=== PATIENT | female | born 1970 | race Caucasian/White ===

== ENCOUNTER 2021-06-17 09:42 | Inpatient (IN) ==
[2021-06-17] MEDS ORDERED: morphine 4 MG/ML VIAL IV ONE (09:58)
[2021-06-17 10:25] LABS: POC Blood Urea Nitrogen 13 mg/dL (6-20); POC CO2 19 mmol/L (22-30); POC Calcium, Ionized 1.03 mmEq/L (1.16-1.32); POC Chloride 108 mEq/L (96-108); POC Creatinine 0.8 mg/dL (0.6-1.2); POC Glucose, Random 103 mg/dL (70-105); POC Hematocrit 33 % (36-48); POC Potassium 3.2 mEql/L (3.3-5.1); POC Sodium 138 mEq/L (133-145)
--- NOTE | 2021-06-17 11:04 | Emergency Department Note ---
Lower Extremity Injury HPI General Chief Complaint: Extremity Injury, Lower Stated Complaint: fever, left knee pain Time Seen by Provider: 06/17/21 09:58 Mode of arrival: ambulatory History of Present Illness HPI Narrative: Patient is a 50-year-old lady who arrives emergency department by private vehicle accompanied by her mother complaining of left knee pain. History is provided by the patient and review of her medical records. Patient underwent revision of a total knee arthroplasty by Dr. Sanders on May 24. She had initially been recovering well until Yvonne when she presented to the emergency department with worsening pain and swelling. I saw her at that time and discussed her presentation with Dr. Vargas who was on-call for the orthop edics group. We decided to initiate treatment with oral antibiotics and the patient has been taking the clindamycin she was prescribed. Despite this, her symptoms have been worsening. She continues to have pain and worsening edema in her left knee. The pain is worsened whenever she moves her knee. She has been taking hydrocodone at home without any improvement in her symptoms. She has been having associated fever and chills. She denies any trauma to her knee. Related Data Home Medications Medication Instructions Recorded Confirmed acyclovir 800 mg tablet 400 mg PO PRN PRN 05/07/19 06/17/21 aripiprazole 15 mg tablet 15 mg PO DAILY 05/07/19 06/17/21 multivitamin 1 each PO DAILY 05/07/19 06/17/21 pramipexole 1.5 mg tablet,extended 1.5 mg PO BID 05/07/19 06/17/21 release 24 hr amlodipine 5 mg tablet 10 mg PO HS 06/23/19 06/17/21 pregabalin 100 mg capsule (Lyrica) 50 mg PO TID cap 03/05/21 06/17/21 levothyroxine 200 mcg tablet 288 mcg PO QDAY 05/17/21 06/17/21 albuterol 90 mcg/actuation aerosol 90 mcg INHALATION PRN PRN 06/17/21 06/17/21 inhaler atorvastatin 40 mg tablet 40 mg PO QHS 06/17/21 06/17/21 clobetasol 0.05 % topical ointment 0.05 ea TOPICAL PRN PRN 06/17/21 06/17/21 epinephrine 0.3 mg/0.3 mL 0.3 mg IM PRN PRN 06/17/21 06/17/21 injection, auto-injector escitalopram oxalate 10 mg tablet 10 mg PO QDAY 06/17/21 06/17/21 etodolac 400 mg tablet 400 mg PO BID 06/17/21 06/17/21 famotidine 40 mg tablet 40 mg PO QDAY 06/17/21 06/17/21 hydrocodone 10 mg-acetaminophen 1 tab PO TID PRN 06/17/21 06/17/21 325 mg tablet leflunomide 20 mg tablet 20 mg PO QDAY 06/17/21 06/17/21 meloxicam 7.5 mg tablet 7.5 mg PO BID 06/17/21 06/17/21 Previous Rx's Medication Instructions Recorded aspirin 81 mg tablet,delayed 81 mg PO BID #60 tab 05/24/21 release (Ecotrin Low Strength) Allergies Allergy/AdvReac Type Severity Reaction Status Date / Time Bee Pollen Allergy Severe Anaphylaxis Verified 06/17/21 09:48 carisoprodol Allergy Severe Difficulty Verified 06/17/21 09:48 Breathing Amoxicillin [From Augmentin] Allergy Mild Rash Verified 06/17/21 09:48 clavulanic acid Allergy Mild Rash Verified 06/17/21 09:48 [From Augmentin] sucralfate [From Carafate] Allergy Mild Rash Verified 06/17/21 09:48 Sulfa (Sulfonamide Allergy Mild Rash Verified 06/17/21 09:48 Antibiotics) Iodinated Contrast Media AdvReac Intermediate Anxiety Verified 06/17/21 09:48 vancomycin AdvReac Intermediate Rash Verified 06/17/21 09:48 aspirin AdvReac Mild Nose Bleed Verified 06/17/21 09:48 lisinopril AdvReac Mild Rash Verified 06/17/21 09:48 morphine AdvReac Mild Irritable Verified 06/17/21 09:48 Cooked Peppers AdvReac Mild Gastrointestinal Uncoded 05/17/21 08:36 Upset Review of Systems ROS ROS Narrative: Narrative: All systems ED: reviewed and negative except as stated. Respiratory: Denies shortness of breath or cough Gastrointestinal: Denies abdominal pain PFSH Narrative Patient History Narrative: Narrative: Medical/Surgical/Family History All Active Problems Post-op bleeding (Acute) Encounter for post surgical wound check (Acute) Postoperative cellulitis of surgical wound (Acute) Left acute otitis media (Acute) Acid reflux (Chronic) COPD (chronic obstructive pulmonary disease) (Chronic) Crohn's disease (Chronic) Depressive disorder (Chronic) Hypertension, essential (Chronic) Hypothyroidism (acquired) (Chronic) Insomnia (Chronic) Tobacco abuse (Chronic) Osteoarthritis (Chronic) Obstructive sleep apnea syndrome (Chronic) Fibromyalgia (Chronic) Tear of meniscus of right knee (Chronic) Encounter for long-term (current) use of other high-risk medications (Acute) Chondrocalcinosis (Acute) Osteoarthritis of spine (Chronic) Back pain (Chronic) Encounter for long-term (current) use of high-risk medication (Acute) Plantar fasciitis (Chronic) Osteoarthritis of left knee (Chronic) Sciatica (Chronic) Lumbar radiculopathy (Chronic) Abdominal wall hernia (Chronic) Rheumatoid arthritis (Acute) Anxiety (Chronic) Chest pain at rest (Acute) Shortness of breath (Acute) History of pulmonary embolus (PE) (Acute) ESR raised (Acute) CRP elevated (Acute) Back pain (Acute) Encounter for medication refill (Acute) Change of dressing (Acute) Occluded PICC line (Acute) PIC line (peripherally inserted central catheter) flush (Acute) Ankle sprain (Acute) Polyarthralgia (Chronic) Contact dermatitis (Acute) Allergic reaction (Acute) Oral candidiasis (Acute) Medical History Abdominal wall hernia Acid reflux 2011 Acute exacerbation of chronic obstructive airways disease Anxiety Back pain Chest pain Chondrocalcinosis COPD (chronic obstructive pulmonary disease) 2010 Crohn's disease 2010 CRP elevated Depressive disorder Encounter for long-term (current) use of high-risk medication Encounter for long-term (current) use of other high-risk medications Encounter for long-term current use of other high-risk medications ESR raised Fibromyalgia Headache Headache Hypertension, essential 2012 Hypothyroidism (acquired) 07/20/2014 Insomnia 2010 Lumbar radiculopathy Migraine 1987 Obstructive sleep apnea syndrome Osteoarthritis Osteoarthritis of left knee Osteoarthritis of spine Plantar fasciitis Polyarthralgia Pre-syncope Rheumatoid arthritis Sciatica Tear of meniscus of right knee Tobacco abuse Tobacco abuse - smoking Urinary tract infection Uterine malignant neoplasm 1996 Surgical History History of back surgery x 7 History of colonoscopy 2012 History of elbow surgery Both elbows History of esophagogastroduodenoscopy 09/27/2014 History of eye surgery Both eyes History of hand surgery Wrist surgery; both wrists History of hernia surgery x 4 History of knee surgery x 3 History of neck surgery for chronic severe migraines History of thymectomy Thymus gland surgery Hx of total knee arthroplasty Family History Mother Family history of arthritis Migraine Father Essential hypertension Son Migraine Sister Carcinoma in situ of skin Social History Smoking Status: Current every day smoker Alcohol Intake Frequency: holiday/special occasion only Substance Use: does not use Exam Narrative Narrative: I reviewed the vital signs. Gen -patient is awake and alert and in no acute distress. HEENT -head is atraumatic. There is no conjunctival pallor or scleral icterus. CV -S1-S2 regular rate and rhythm. Resp -breathing is nonlabored. Lungs are clear to auscultation bilaterally. There is no cyanosis. Derm -skin is warm and dry. MSK -there is significant edema and induration surrounding the entire left knee. There is a palpable area of fluctuance anterior to the left patella as well as a palpable effusion. The patient's knee is held in mid flexion and she has extremely limited range of motion due to pain. There is overlying erythema that blanches with light palpation. Posterior tibial pulse is palpable. Patient has limited active range of motion at the ankle but good passive range of motion. Palpable compartments of the leg are soft. Psych -patient has appropriate affect. Neuro -patient answers questions appropriately with fluent speech. Patient moves all present extremities equally. Course Vital Signs Vital signs: Vital Signs Temperature 98.0 F 06/17/21 09:44 Pulse Rate 99 H 06/17/21 09:44 Respiratory Rate 16 06/17/21 09:44 Blood Pressure 127/88 06/17/21 09:44 Pulse Oximetry (%) 97 06/17/21 09:44 Temperature 98.0 F 06/17/21 09:44 Pulse Rate 95 H 06/17/21 16:31 Respiratory Rate 16 06/17/21 09:44 Blood Pressure 130/91 06/17/21 16:31 Pulse Oximetry (%) 99 06/17/21 16:31 Procedures Other Procedure: Arthrocentesis of left knee I discussed the risks and potential benefits of the procedure with the patient prior to the procedure. The patient's left knee was cleansed with Betadine and draped in a sterile fashion. Anesthesia was provided with local infiltration of 2% lidocaine with epinephrine. An 18-gauge needle was introduced into the joint space from a superior lateral approach. 20 mL of purulent yellow fluid was aspirated from the joint. Due to perceived additional fluid in the joint, a second 18-gauge needle was then introduced in the joint space and a small amount of purulent fluid was once again aspirated. A pressure dressing was applied following procedure. No complications were observed. MDM MDM Narrative Medical decision making narrative: Patient returns with worsening pain and swelling in her left knee. I discussed the patient's history examination diagnostic findings with Dr. Vargas on-call for orthopedics. As the patient is a personal patient of Dr. Sanders's he requested I discussed it with Dr. Sanders. I also discussed the patient's history examination diagnostic findings with Dr. Sanders. He requested I perform an arthrocentesis and discussed the results with him. After performing the arthrocentesis, I described the appearance of the fluid to Dr. Sanders and he requested the patient be admitted to his service. I discussed the plan with the patient and her mother and she is agreeable. Lab Data Lab results reviewed: Yes I reviewed the patient's lab results. Result diagrams: 06/17/21 10:05 Labs: Lab Results 06/17/21 06/17/21 06/17/21 Range/Units 10:05 10:05 10:30 WBC 8.8 (4.5-11.0) K/mcL RBC 3.85 (3.59-5.38) M/mcL Hgb 12.4 (11.2-15.7) g/dL Hct 37.2 (34.1-44.9) % POC Hct 33 L (36-48) % MCV 96.6 (80.0-100.0) fL MCH 32.2 (26.0-34.0) pg MCHC 33.3 (31.0-36.0) g/dL RDW 14.3 (11.5-14.5) % Plt Count 221 (140-440) K/mcL MPV 10.2 (7.4-10.4) fL Neut % (Auto) 80.2 H (38.0-78.0) % Lymph % (Auto) 9.7 L (15.5-49.0) % [place] % (Auto) 8.5 (1.0-12.0) % Eos % (Auto) 0.9 (0.0-7.0) % Baso % (Auto) 0.7 (0.0-2.0) % Lymph # (Auto) 0.86 L (1.50-4.80) K/mcL [place] # (Auto) 0.75 (0.10-0.90) K/mcL Eos # (Auto) 0.08 (0.00-0.70) K/mcL Baso # (Auto) 0.06 (0.00-0.30) K/mcL Absolute Neutrophils 7.09 (1.80-8.00) K/mcL ESR 94 H (0-20) mm/hr POC Sodium 138 (133-145) mEq/L POC Potassium 3.2 L (3.3-5.1) mEql/L POC Chloride 108 (96-108) mEq/L POC Total CO2 19 L (22-30) mmol/L POC BUN 13 (6-20) mg/dL POC Creatinine 0.8 (0.6-1.2) mg/dL POC Glucose 103 (70-105) mg/dL POC WB Ioniz Calcium 1.03 L (1.16-1.32) mmEq/L C-Reactive Protein 23.60 H (0.03-0.80) mg/dL Urine Color Urine Appearance (Clear) Urine pH (5.0-9.0) Ur Specific [place] (1.000-1.035) Urine Protein (Negative) mg/dL Urine Glucose (UA) (Negative) mg/dL Urine Ketones (Negative) mg/dL Urine Occult Blood (Negative) mg/dL Urine Nitrate (Negative) Urine Bilirubin (Negative) mg/dL Urine Urobilinogen mg/dL Ur Leukocyte Esterase (Negative) /uL Urine RBC (0-3) /hpf Urine WBC (0-4) /hpf Ur Squamous Epith Cells (0-4) /hpf Urine Bacteria (0) /hpf Urine Mucus (None) /hpf Ur Culture Indicated? Fluid Source Fluid Color Fluid Appearance Fluid RBC Fluid Diff Comment Fluid Tot Cell Count Fluid Nucleated Cells Fluid Neutrophils Fluid Lymphocytes Fluid Monocytes Fluid Eosinophils Fluid Basophils Fluid Plasma Cells Fld Mesothelial Cells Synovial Source Left knee Synovial Color Yellow Synovial Appearance Hazy Synovial Nuc Cells 20596 /cumm Synovial Neutrophils 89 H (0-25) % Synovial Other Cells 11 % 06/17/21 06/17/21 Range/Units 13:57 13:59 WBC (4.5-11.0) K/mcL RBC (3.59-5.38) M/mcL Hgb (11.2-15.7) g/dL Hct (34.1-44.9) % POC Hct (36-48) % MCV (80.0-100.0) fL MCH (26.0-34.0) pg MCHC (31.0-36.0) g/dL RDW (11.5-14.5) % Plt Count (140-440) K/mcL MPV (7.4-10.4) fL Neut % (Auto) (38.0-78.0) % Lymph % (Auto) (15.5-49.0) % [place] % (Auto) (1.0-12.0) % Eos % (Auto) (0.0-7.0) % Baso % (Auto) (0.0-2.0) % Lymph # (Auto) (1.50-4.80) K/mcL [place] # (Auto) (0.10-0.90) K/mcL Eos # (Auto) (0.00-0.70) K/mcL Baso # (Auto) (0.00-0.30) K/mcL Absolute Neutrophils (1.80-8.00) K/mcL ESR (0-20) mm/hr POC Sodium (133-145) mEq/L POC Potassium (3.3-5.1) mEql/L POC Chloride (96-108) mEq/L POC Total CO2 (22-30) mmol/L POC BUN (6-20) mg/dL POC Creatinine (0.6-1.2) mg/dL POC Glucose (70-105) mg/dL POC WB Ioniz Calcium (1.16-1.32) mmEq/L C-Reactive Protein (0.03-0.80) mg/dL Urine Color Yellow Urine Appearance Hazy A (Clear) Urine pH 5.0 (5.0-9.0) Ur Specific [place] 1.030 (1.000-1.035) Urine Protein 30 A (Negative) mg/dL Urine Glucose (UA) Negative (Negative) mg/dL Urine Ketones Negative (Negative) mg/dL Urine Occult Blood Negative (Negative) mg/dL Urine Nitrate Negative (Negative) Urine Bilirubin Negative (Negative) mg/dL Urine Urobilinogen Negative mg/dL Ur Leukocyte Esterase 500 A (Negative) /uL Urine RBC 9 H (0-3) /hpf Urine WBC 24 H (0-4) /hpf Ur Squamous Epith Cells 10 H (0-4) /hpf Urine Bacteria None (0) /hpf Urine Mucus Many A (None) /hpf Ur Culture Indicated? No Fluid Source TNP Fluid Color TNP Fluid Appearance TNP Fluid RBC TNP Fluid Diff Comment TNP Fluid Tot Cell Count TNP Fluid Nucleated Cells TNP Fluid Neutrophils TNP Fluid Lymphocytes TNP Fluid Monocytes TNP Fluid Eosinophils TNP Fluid Basophils TNP Fluid Plasma Cells TNP Fld Mesothelial Cells TNP Synovial Source Synovial Color Synovial Appearance Synovial Nuc Cells /cumm Synovial Neutrophils (0-25) % Synovial Other Cells % ED POC Tests ED POC Tests: NAIMA - SARS Antigen Negative Discharge Plan Patient/Caregiver Discharge Instructions Pt seen by SERVICE ORDER CLERK/PA only: No Patient Disposition: Xfer As Inpt ([facility]) Condition: Fair Follow up with: Anastacia Lindsay FNP [Primary Care Provider] - Prescriptions: No Action pregabalin [Lyrica] 100 mg capsule 50 mg PO TID 0RF multivitamin 1 EACH tablet 1 each PO DAILY 0RF acyclovir 800 MG tablet 400 mg PO PRN PRN (Reason: Cold Sores) 0RF aripiprazole 15 MG tablet 15 mg PO DAILY 0RF pramipexole 1.5 MG tablet extended release 24 hr 1.5 mg PO BID 0RF amlodipine 5 MG tablet 10 mg PO HS 0RF levothyroxine 200 mcg Tablet 288 mcg PO QDAY 0RF Rx Instructions: In addition to Levothyroxine 150mcg aspirin [Ecotrin Low Strength] 81 mg tablet,delayed release (DR/EC) 81 mg PO BID Qty: 60 0RF atorvastatin 40 mg tablet 40 mg PO QHS 0RF Label Comments: TAKE 1 TABLET BY MOUTH AT BEDTIME famotidine 40 mg tablet 40 mg PO QDAY 0RF hydrocodone-acetaminophen 10-325 mg tablet 1 tab PO TID PRN (Reason: Pain) 0RF Label Comments: TAKE 1 - 2 TABLETS BY MOUTH EVERY 4 - 6 HOURS leflunomide 20 mg Tablet 20 mg PO QDAY 0RF meloxicam 7.5 mg Tablet 7.5 mg PO BID 0RF etodolac 400 mg Tablet 400 mg PO BID 0RF albuterol 90 mcg/actuation Aerosol 90 mcg INHALATION PRN PRN (Reason: Shortness Of Breath) 0RF clobetasol 0.05 % ointment 0.05 ea TOPICAL PRN PRN (Reason: Rash) 0RF Label Comments: APPLY EXTERNALLY TO THE AFFECTED AREA ON BODY TWICE DAILY FOR ALMOST 2 WEEKS ON/OFF. AVOID FACE. epinephrine 0.3 mg/0.3 mL auto-injector 0.3 mg IM PRN PRN (Reason: Anaphylaxis) 0RF Label Comments: INJECT EPIPEN NEEDED FOR EXPOSURE TO BEE VENOM escitalopram oxalate 10 mg tablet 10 mg PO QDAY 0RF Label Comments: TAKE 1 TABLET BY MOUTH EVERY DAY Discharge Date/Time: 06/17/21 17:00
[2021-06-17 11:06] LABS: Basophils # (Auto) 0.06 K/mcL (0.00-0.30); Basophils % (Auto) 0.7 % (0.0-2.0); Eosinophils # (Auto) 0.08 K/mcL (0.00-0.70); Eosinophils % (Auto) 0.9 % (0.0-7.0); Hematocrit 37.2 % (34.1-44.9); Hemoglobin 12.4 g/dL (11.2-15.7); Lymphocytes # (Auto) 0.86 K/mcL (1.50-4.80); Lymphocytes % (Auto) 9.7 % (15.5-49.0); Mean Cell Volume 96.6 fL (80.0-100.0); Mean Corpuscular HGB Conc 33.3 g/dL (31.0-36.0); Mean Platelet Volume 10.2 fL (7.4-10.4); Monocytes # (Auto) 0.75 K/mcL (0.10-0.90); Monocytes % (Auto) 8.5 % (1.0-12.0); Neutrophils % (Auto) 80.2 % (38.0-78.0); Platelet Count 221 K/mcL (140-440); RBC 3.85 M/mcL (3.59-5.38); Red Cell Distribution Width 14.3 % (11.5-14.5); WBC 8.8 K/mcL (4.5-11.0)
[2021-06-17 12:14] LABS: Erythrocyte Sedimentation Rate 94 mm/hr (0-20)
[2021-06-17] MEDS: HYDROmorphone 0.5 MG/0.5 ML SYRINGE IV PRN ×3 (12:25→18:53)
[2021-06-17 14:31] LABS: Appearance,Urine HAZY (Clear); Bilirubin,Urine Negative (Negative); Color,Urine Yellow; Culture Indicated,Urine No; Glucose,Urine (UA) Negative (Negative); Ketones,Urine Negative (Negative); Leukocyte Esterase,Urine 500 /uL (Negative); Mucus,Urine MANY /hpf; Nitrate,Urine Negative (Negative); Protein,Urine 30 mg/dL (Negative); Urine Blood Negative (Negative); Urine RBC 9 /hpf (0-3); Urine Squamous Epithelial Cell 10 /hpf (0-4); Urine WBC 24 /hpf (0-4); Urobilinogen,Urine Negative
[2021-06-17] MEDS ORDERED: ACETAMINOPHEN 325 MG TABLET PO PRN (15:46)
[2021-06-17] MEDS ORDERED: ONDANSETRON 4 MG/2 ML VIAL IV PRN (15:46)
[2021-06-17] MEDS: 0.9 % SODIUM CHLORIDE 1,000 ML IV SCH (16:19)
[2021-06-17 16:24] LABS: Appearance,Synovial Fluid Hazy; Color,Synovial Fluid Yellow; Neutrophils,Synovial Fluid 89 % (0-25); Nucleated Cells,Synovial Fld 45543 /cumm; Other Cells,Synovial Fluid 11 %
--- OUTSIDE RECORDS SUMMARY | 2021-06-17 17:26 | External Medical Summary ---
:1970 Author Care Team Providers Name Role Phone AVIS LERMA MD Primary Care Provider [phone] HALLE BRICEÑO MD Operational Risk Manager [phone] [facility] OTHER [phone] Allergies Code Code System Name Reaction Severity Status Onset 1191 RxNorm Aspirin Active 499696 RxNorm Augmentin Active Bee Venom Protein (Honey Bee) Active 210 RxNorm Carisoprodol Active Clavulanic Acid Active Green Pepper Active Iodinated Contrast Media Activ e 33917 RxNorm Lisinopril Active 7052 RxNorm Morphine Active 752478 RxNorm Soma Active 68975 RxNorm Sucralfate Active Sulfa (Sulfonamide Active Antibiotics) 00125 RxNorm Vancomycin Active Medications Name Status Start Date Stop Date acetazolamide ER 500 mg capsule,extended release Completed 12/24/2018 1 po QD acyclovir 400 mg tablet Completed 07/16/19 18 amitriptyline 50 mg tablet Completed 12/24 amlodipine 5 mg tablet Active Not avail able Take 1 tablet every day by oral route in the evening. Anoro Ellipta 62.5 mcg-25 mcg/actuation powder Completed 12/24/2018 for inhalation aripiprazole 15 mg tablet Active Not av ailable Atrovent HFA 17 mcg/actuation aerosol inhaler Completed 07/16/2017 azithromycin 250 mg tablet Completed 07/16 bisoprolol fumarate 10 mg tablet Completed 12/24/2018 bisoprolol fumarate 5 mg tablet Completed 12/24/2018 1 po BID zuypojyxso-lezjelkycxawi-wfyexadd 50 mg-325 mg-40 mg tablet Comp leted 12/24/2018 take 1 -2 tabs po q 4 hours PRN carbamazepine 200 mg tablet Completed 12/14 Chantix Starting Month Aaron Completed 06/01 clindamycin HCl 300 mg capsule Completed 0 07/29/2017 cyclobenzaprine 10 mg tablet Completed 04/2019 doxycycline hyclate 100 mg tablet Completed 07/17/2017 Enbrel Completed 06/01/2020 1 injection once weekly epinephrine 0.3 mg/0.3 mL injection, Active Not available auto-injector estradiol 2 mg tablet Completed 06/01/2020 eszopiclone 2 mg tablet Completed 12/25/19 19 1/2 tab po q hs prn fluconazole Completed 07/24/2020 10mg daily fluconazole 150 mg tablet Completed 2018 fluticasone propionate 50 mcg/actuation nasal Completed 12/24/2018 spray,suspension furosemide 20 mg tablet Completed 06/01/20 20 Take 1 tablet every day by oral route. gabapentin 800 mg tablet Completed 020 hydrocodone 10 mg-acetaminophen 325 mg tablet Active Not available PRN hydrocodone 7.5 mg-acetaminophen 325 mg tablet Completed 07/16/2017 hydroxychloroquine 200 mg tablet Completed 12/24/2018 hydroxyzine HCl 10 mg tablet Completed ibuprofen 800 mg tablet Completed 12/25/19 19 Keflex 500 mg capsule Active 07/24/2020 Not availa ble Take 2 capsules 4 times a day by oral route. ketoconazole 2 % topical cream Completed 0 12/24/2018 leflunomide 10 mg tablet Active 07/24/2020 Not rena ilable Take 2 tablets every day by oral route for 30 days. leflunomide 20 mg tablet Completed 020 levofloxacin 500 mg tablet Completed 07/16 levofloxacin 750 mg tablet Completed 07/16 levothyroxine 100 mcg tablet Completed Take 1 tablet every day by oral route. levothyroxine 125 mcg tablet Completed 04/2019 methylprednisolone 4 mg tablets in a dose pack Completed 07/16/2017 montelukast 10 mg tablet Completed 019 mupirocin 2 % topical ointment Completed 0 07/29/2017 naproxen 500 mg tablet Completed 8 omeprazole 20 mg capsule,delayed release Completed 06/01/2020 TAKE 1 CAPSULE BY MOUTH EVERY MORNING BEFORE breakfast ondansetron 4 mg disintegrating tablet Completed 07/16/2017 ondansetron 8 mg disintegrating tablet Completed 07/16/2017 One A Day tablet Active Not available Take by oral route. potassium chloride ER 10 mEq tablet,extended release Active Not available Take 1 tablet every day by oral route. pramipexole 1 mg tablet Completed 07/16/19 18 pramipexole 1.5 mg tablet Completed 2019 Take 1 tablet every day by oral route in the evening for 90 day s. prednisone 20 mg tablet Completed 07/16/19 18 ProAir HFA 90 mcg/actuation aerosol inhaler Active Not available ranitidine 150 mg tablet Completed 018 red yeast rice Completed 06/01/2020 1200 MG, 1 tab BID rifampin 300 mg capsule Completed 07/24/19 21 Take 1 capsule 3 times a day by oral route for 49 days. ropinirole 3 mg tablet Completed 8 tamsulosin 0.4 mg capsule Completed 2017 tizanidine 4 mg tablet Completed 8 topiramate 100 mg tablet Completed 019 trazodone 100 mg tablet Completed 06/01/20 20 Take 2 tablets by oral route in the evening for 90 days. trazodone 50 mg tablet Completed 9 Trelegy Ellipta 100 mcg-62.5 mcg-25 mcg powder for inhalation Ac tive Not available INHALE 1 PUFF BY MOUTH EVERY DAY triamcinolone 0.1 % topical ointment and dimethicone 5 % topical cream Completed 06/01/2020 PRN venlafaxine ER 150 mg capsule,extended release Completed 06/01/2020 24 hr Problems Name Status Onset Date Source Strangulated Incisional Hernia Active 07/29/2017 Postoperative Visit Active 09/10/2017 Umbilical Hernia Active 10/21/2017 Central Hypothyroidism Active 12/24/2018 Hyperlipidemia Active 12/24/2018 Insomnia Active 12/24/2018 Obstructive Sleep Apnea Syndrome Active 12/24/2018 Restless Legs Active 12/24/2018 Chronic Pain Active 12/24/2018 Neuropathy Active 12/24/2018 Hypertensive Disorder Active 12/24/2018 Allergic Rhinitis Active 12/24/2018 Chronic Obstructive Lung Disease Active 12/24/2018 Gastroesophageal Reflux Disease Active 12/24/2018 Rheumatoid Arthritis Active 12/24/2018 Osteoarthritis Active 12/24/2018 Spinal Stenosis Active 12/24/2018 Headache Active 12/24/2018 Discitis Active 06/22/2020 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 Mass of Axilla Active Procedures Date Name Performed by 08/21/2017 Hernia Repair W/mesh Information not rena ilable Notes: Laparoscopic incisional 02/19/2006 Hernia Repair Information not avai lable 07/18/2005 Abdominoplasty Information not avai lable Wrist Arthroscopy/surgery Information no t available Total Knee Arthroplasty Information not available Notes: Right total knee replacement Shoulder Surgery Information not avai lable Knee Surgery Information not avai lable Hysterectomy Information not avai lable Removal of Thymus Gland Information not available Elbow Surgery Information not avai lable Back Surgery Information not avai lable Appendectomy Information not avai lable 10/21/2017 CT, Abdomen + Pelvis, W/ Contrast [facility] [address] [place] [id number] (Work Place) 10/11/2019 US, Breast, Limited [facility] [address] [place] [id number] (Work Place) 10/12/2019 MAMMO, Diagnostic, Digital, Unilateral [facility] [address] [place] [address] [place] [address] (Work Place) Results Lab Results Date Name Specimen Result Interpretation Description Value Range Status Address 07/22/2020 CBC W/ Auto Whole Wbc 5.5 4.5-11.0 Final Pathologists' Diff Blood K/mcL K/mcL Regional [facility] ab: [address] [place] [address] Whole Rbc 4.50 4.00-5.20 Final Patholo gists' Blood M/mcL M/mcL Regional L ab: [address] [place] [address] Whole Hgb 13.1 12.0-15.0 Final Patholo gists' Blood g/dL g/dL Regional L ab: [address] [place] [address] Whole Hct 42.2 % 36.0-48.0 Final Patholo gists' Blood % Regional L ab: [address] [place] [address] Whole Mcv 93.8 80.0-100. Final Patholo gists' Blood fL 0 fL Regional L ab: [address] [place] [address] Whole Mch 29.1 26.0-34.0 Final Patholo gists' Blood pg pg Regional L ab: [address] [facility] , [place] Whole Mchc 31.0 31.0-36.0 Final Patholo gists' Blood g/dL g/dL Regional L ab: [address] [place] [address] Whole High Rdw 15.1 % 11.5-14.5 Final Patholo gists' Blood % Regional L ab: [address] [facility] , [place] Whole Plt CT 272 140-440 Final Patholog ists' Blood K/mcL K/mcL Regional L ab: [address] [facility] , [place] Whole High Mpv 10.5 7.4-10.4 Final Patholog ists' Blood fL fL Regional L ab: [address] [facility] , [place] Whole Neut % 56.8 % 38.0-78.0 Final Pathol ogists' Blood % Regional L ab: [address] [facility] , [place] Whole Lymph % 32.5 % 15.0-49.0 Final Patho logists' Blood % Regional L ab: [address] [facility] , [place] Whole [place] % 6.0 % 1.0-12.0 Final Patholo gists' Blood % Regional L ab: [address] [facility] , [place] Whole Eos % 3.3 % 0.0-7.0 % Final Patholo gists' Blood Regional L ab: [address] [facility] , [place] Whole Baso % 1.4 % 0.0-2.0 % Final Pathol ogists' Blood Regional L ab: [address] [facility] , [place] Whole Absolute 3.14 1.80-8.00 Final Path ologists' Blood Neutrophil K/mcL K/mcL Region al Lab: Count [address] [facility] , [place] Whole Lymph # 1.80 1.50-4.80 Final Patho logists' Blood K/mcL K/mcL Regional L ab: [address] [facility] , [place] Whole [place] # 0.33 0.10-0.90 Final Pathol ogists' Blood K/mcL K/mcL Regional L ab: [address] [facility] , [place] Whole Eos # 0.18 0.00-0.70 Final Patholo gists' Blood K/mcL K/mcL Regional L ab: [address] [facility] , [place] Whole Baso # 0.08 0.00-0.20 Final Pathol ogists' Blood K/mcL K/mcL Regional L ab: [address] [facility] , [place] 07/22/2020 C-reactive Plasma C-reactiv 0.30 0.03-0.80 Fi nal Pathologists' Protein, e Protein mg/dL mg/dL Regio nal Lab: Quantitative [address] [facility], [place] 07/22/2020 CMP, Serum Plasma Glucose,r 74 70-105 Final Pathologists' or Plasma andom mg/dL mg/dL Regiona l Lab: [address] , [place] Plasma Blood 13 6-20 Final Pathologis ts' Urea mg/dL mg/dL Regional L ab: Nitrogen [address], [place] Plasma Creatinin 1.1 0.6-1.1 Final Patho logists' e mg/dL mg/dL Regional L ab: [address] , [place] Plasma Sodium 140 133-145 Final Patholog ists' mmol/L mmol/L Regional L ab: [address] , [place] Plasma Potassium 3.4 3.3-5.1 Final Patho logists' mmol/L mmol/L Regional L ab: [address] , [place] Plasma Chloride 100 96-108 Final Patholo gists' mmol/L mmol/L Regional L ab: [address] , [place] Plasma High Carbon 32 22-30 Final Pathologi sts' Dioxide mmol/L mmol/L Regional Lab: [address] , [place] Plasma Anion Gap 8.0 8.0-16.0 Final Path ologists' Regional L ab: [address] , [place] Plasma Calcium 9.4 8.6-10.4 Final Pathol ogists' mg/dL mg/dL Regional L ab: [address] , [place] Plasma Total 8.4 5.9-8.4 Final Pathologi sts' Protein gm/dL gm/dL Regional Lab: [address] , [place] Plasma Albumin 4.5 3.2-5.2 Final Patholo gists' gm/dL gm/dL Regional L ab: [address] , [place] Plasma High Globulin 3.9 2.2-3.7 Final Pathol ogists' gm/dL gm/dL Regional L ab: [address] , [place] Plasma Alb/glob 1.2 1.0-2.3 Final Pathol ogists' Ratio Regional L ab: [address] , [place] Plasma Bilirubin 0.2 0.1-1.0 Final Patho logists' ,total mg/dL mg/dL Regional L ab: [address] , [place] Plasma AST/SGOT 24 U/L <32 U/L Final Pathol ogists' Regional L ab: [address] , [place] Plasma ALT/SGPT 14 U/L <40 U/L Final Pathol ogists' Regional L ab: [address] , [place] Plasma Alkaline 94 U/L 39-117 Final Patholo gists' Phosphatas U/L Region al Lab: e [address] , [place] Plasma Glomerula 58 Final Pathol ogists' r Regional L ab: Filtration [address], Rate [place] 07/22/2020 ESR Whole High Erythrocy 39 0-20 Corrected Pathologists' (Erythrocyte Blood te Sed mm/HR mm/HR Luz onal Lab: Sedimentatio Rate [address] , n Rate), [place] Blood 06/13/2020 CMP, Serum No Pa thologists' or Plasma observatio Reg ional Lab: n [address] , recorded. [facility] n 06/07/2020 CMP, Serum No Pa thologists' or Plasma observatio Reg ional Lab: n [address] , recorded. [facility] n 07/17/2017 Mrsa Screen, GROIN Results Pathologists' PCR Regional L ab: [address] [facility] , [place] 07/17/2017 Mrsa Screen, NOSE Results Pathologists' PCR Regional L ab: [address] , [place] Past Encounters 09/21/2020 Discitis; Methicillin Resistant Staphylo coccus Aureus Carrier; Rheumatoid Arthritis; ESR Raised Hermelindo Jimenez MD: [address] [place] [address], [place] [phone], Ph. 07/24/2020 Discitis; Methicillin Resistant Staphylo coccus Aureus Carrier; Spinal Stenosis; Rheumatoid Arthritis Hermelindo Jimenez MD: [address] [place] [address], [place] [phone], Ph. 06/22/2020 Acute Osteomyelitis of Lumbar Spine; Dis citis; Infection by Methicillin Sensitive Staphylococcus Aureus; Rheumatoid Arthritis; Spinal Stenosis; Methicillin Resistant Staphylococcus Aureus Carrier Hermelindo Jimenez MD: [address] [place] [address], [place] [phone], Ph. 06/01/2020 Lumbar Discitis; Infection by Methicilli n Sensitive Staphylococcus Aureus; Methicillin Resistant Staphylococcus Aureus Carrier; Rheumatoid Arthritis; ESR Raised Hermelindo Jimenez MD: [address] [place] [address], [place] [phone], Ph. Social History Tobacco Smoking Status Heavy Tobacco Smoker (1 pack per day) Vaccine List Vaccine Type influenza, injectable, quadrivalent 04/02/2017 03/16/2020 Pneumococcal Conjugate, unspecified form ulation 03/16/2014 pneumococcal, unspecified formulation 06/16/2018 Notes: shingles shot 08/28/20 Plan of Care Reminders Provider Appointments None recorded. Lab None recorded. Referral None recorded. Procedures None recorded. Surgeries None recorded. Imaging None recorded. Vitals 09/21/2020 02:00PM Established Patient 30 Height Weight BMI Blood Pressure 5 ft 8 in 241 lbs 36.6 kg/m2 124/76 mm[Hg] 07/24/2020 01:00PM Established Patient 30 Height Weight BMI Blood Pressure 5 ft 8 in 255 lbs 38.8 kg/m2 128/72 mm[Hg] 06/22/2020 02:00PM Established Patient 30 Height Weight BMI Blood Pressure 5 ft 8 in 234 lbs 35.6 kg/m2 122/76 mm[Hg] 06/01/2020 02:30PM Hospital Follow Up Height Weight BMI Blood Pressure 5 ft 8 in 250 lbs 38 kg/m2 118/84 mm[Hg] 11/10/2019 09:45AM Post-Op Height Weight BMI Blood Pressure 5 ft 8 in 272 lbs 41.4 kg/m2 130/90 mm[Hg] 10/11/2019 02:30PM Procedure 45 Height Weight BMI Blood Pressure 5 ft 8 in 278.2 lbs 42.3 kg/m2 132/86 mm[Hg] 03/29/2019 09:30AM Established Patient 30 Height Weight BMI Blood Pressure 5 ft 8 in 290 lbs 44.1 kg/m2 132/80 mm[Hg] 12/24/2018 08:30AM New Patient 60 Height Weight BMI Blood Pressure 5 ft 8 in 300 lbs 45.6 kg/m2 162/100 mm[Hg] 10/21/2017 01:30PM Any 15 Height Weight BMI Blood Pressure 5 ft 8 in 281 lbs 42.7 kg/m2 135/65 mm[Hg] 09/10/2017 09:00AM Post-Op Height Weight BMI 5 ft 8 in 268 lbs 40.7 kg/m2 07/29/2017 10:30AM Any 15 Height Weight BMI Blood Pressure 5 ft 8 in 280 lbs 42.6 kg/m2 137/69 mm[Hg] 07/17/2017 02:30PM Established Patient 15 Height Weight BMI Blood Pressure 5 ft 8 in 275 lbs 41.8 kg/m2 120/70 mm[Hg]
--- OUTSIDE RECORDS SUMMARY | 2021-06-17 17:26 | External Medical Summary | Continuity of Care Document ---
:1970 Author Organization [facility] Address [address] [place] [address] [facility] [place] [address] Phone Care Team Providers Name Role Phone Savannah OD Unavailable Unavailable Allergies, Adverse Reactions, Alerts Substance Reaction Status Criticality sucrose Active No Information carisoprodol Active No Information green pepper Active No Information POTASSIUM CLAVULANATE Active No Informa tion AMOXICILLIN TRIHYDRATE Active No Inform ation lisinopril Active No Information morphine Active No Information vancomycin Active No Information Sulfa (Sulfonamide Antibiotics) Active No Information aspirin Active No Information WARNIN allergy(ies) could not be collected because the type is not supported. Please contact [facility] practice for further details. Medications Medication Instructions Dosage Effective Status Comments Dates (start - stop) ofloxacin 0.3 % eye (1st eye) Instill - Active Allow a new drops one drop to left prescrip tion for eye four times a the same day, for one medication(s ) for week. Begin using a surgi solomon drops as procedure on t he instructed. second eye if within 30 days of the first eye. May substitute Tobramycin 5mL if ofloxacin is unavailable prednisolone acetate (1st eye) Instill - Activ e Allow a new 1 % eye one drop to left prescrip tion for drops,suspension eye four times a th e same day, until gone. medicati on(s) for Begin using drops a surgi solomon as instructed. procedure on the second eye if within 30 days of the first eye. Ok to substitute dexamethasone 0.1% or Durezol 0.0 5%, QID until out. ofloxacin 0.3 % eye (2nd eye) Instill - Active Allow a new drops one drop to right prescri ption for eye four times a the same day, for one medication(s ) for week. Begin using a surgi solomon drops as procedure on t he instructed. second eye if within 30 days of the first eye. May substitute Tobramycin 5mL if ofloxacin is unavailable prednisolone acetate (2nd eye) Instill - Activ e Allow a new 1 % eye one drop to right prescri ption for drops,suspension eye four times a th e same day, until gone. medicati on(s) for Begin using drops a surgi solomon as instructed. procedure on the second eye if within 30 days of the first eye. Ok to substitute dexamethasone 0.1% or Durezol 0.0 5%, QID until out. aripiprazole 15 mg take 1 tablet by 15 MG - Active tablet oral route every day albuterol sulfate HFA - Active 90 mcg/actuation aerosol inhaler amlodipine 5 mg TAKE 1 TABLET BY - Active tablet MOUTH EVERY DAY AT BEDTIME aspirin 81 mg TAKE 1 TABLET BY - Active tablet,delayed MOUTH EVERY release MORNING atorvastatin 40 mg take 1 tablet by 40 MG - Active tablet oral route every day clobetasol 0.05 % - Active topical ointment cyclobenzaprine 10 mg - Active tablet epinephrine 0.3 INJECT EPIPEN - Active mg/0.3 mL injection, NEEDED FOR auto-injector EXPOSURE TO BEE VENOM escitalopram 10 mg - Active tablet famotidine 40 mg - Active tablet fluconazole 150 mg TAKE 1 TABLET BY - Active tablet MOUTH TODAY. REPEAT IN 3 DAYS IF NOT RESOLVED hydrocodone 10 - Active mg-acetaminophen 325 mg tablet leflunomide 20 mg TAKE 1 TABLET BY - Active tablet MOUTH EVERY DAY levothyroxine 150 mcg take 1 tablet by 150 MCG - Active tablet oral route every day levothyroxine 200 mcg TAKE 1 TABLET BY - Active tablet MOUTH EVERY DAY loratadine 10 mg TAKE 1 TABLET BY - Active tablet MOUTH EVERY DAY meloxicam 7.5 mg TAKE 1 TABLET BY - Active tablet MOUTH TWICE DAILY Narcan 4 mg/actuation USE DIRECTED - Active nasal spray NASALLY omeprazole 20 mg TAKE 2 CAPSULES - Active capsule,delayed BY MOUTH TWICE release DAILY pramipexole 1.5 mg TAKE 1 TABLET BY - Active tablet MOUTH DAILY pregabalin 50 mg - Active capsule sumatriptan 50 mg take 1 tablet by 50 MG - Active tablet oral route after onset of migraine; may repeat after 2 hours if headache returns,not to exceed 200mg in 24hrs Symbicort 80 mcg-4.5 - Active mcg/actuation HFA aerosol inhaler topiramate 100 mg TAKE 1 TABLET BY - Active tablet MOUTH TWICE DAILY Procedures Procedure Date POSTOP FOLLOW UP VISIT DURING GLOBAL ANESTH, LENS SURGERY FACILITY FEE 66823 OPHTHALMIC BIOMETRY CATARACT SURG W/IOL, 1 STAGE POSTOP FOLLOW UP VISIT DURING GLOBAL ANESTH, LENS SURGERY FACILITY FEE 00180 OPHTHALMIC BIOMETRY CATARACT SURG W/IOL, 1 STAGE CORNEAL TOPOGRAPHY Oct- OPHTHALMIC BIOMETRY Oct OPHTH DX IMAGING POST SEG; OPTIC Oct OFFICE/OUTPATIENT VISIT, NEW Advance Directives Directive Yes / No Effective Date File Name No Information Encounters Encounter Practice Location Reason(s) Diagnoses Date Provider Provide rs Description For Visit Copied on Encounter [facility] Combined forms of [place] Referr ing Cataract [place] age-related Mei. Provider : [facility] cataract, right 1 [address] [facility] [address] intraocular lens [place], [address] [place], [id number], [address], [address], [place]. [facility], tel:74 [place], [id number] . [place], [address] tel: [phone] , [place] tel: [phone] [facility] Combined forms of Carmen R eferring Cataract [facility] ASC age-related Carlos. 2205 Provid er: And Laser cataract, right [address] [facility], , [facility] [place], [address] [place], [address], [address], [id number], [facility], [place], [id number]. MD, tel:69 tel: [phone] , [place] tel: [phone] [facility] Combined forms of Nov-1 [facility]CLI Refer ring Cataract [facility] ASC age-related [place] Provider: And Laser cataract, right 1 ASC. [facility] eye [address], [place], , [address] [place], [address] [place], [address], [address], [id number], [place], [id number]. MD, tel: tel: [phone] , [place] tel: [phone] [facility] Combined forms of Nov-1 Yung Referr ing Cataract [place] age-related Marquez. 6695 Provi eddie: [facility] cataract, right 1 [address] [facility] eye [address], Yung, , [address] [place], [address] [place] [facility], [address], [place]. [place], [place], tel: [place], [address] [place], [address]. [id number] tel: , [place] [phone] tel: [phone] [facility] Combined forms of Nov-1 Yung Refer ring Cataract [facility] ASC age-related Marquez. 6695 Provi eddie: And Laser cataract, right [address] [facility] eye [address], Zolan, , [address] [place], [address] [place], [address], [address], [address], [place]. Jamila [place], tel: [place], [id number] . [place], [address] tel: [phone] , [place] tel: [phone] [facility] Combined forms of Nov-0 [place]ba Referr ing Cataract [place] age-related Mei. Provider : [facility] cataract, left [address] [place] [address] [facility] [place], [facility] , , [address] intraocular lens [place], [address] [place], [address], [address], [address], [place]. [place], tel: [place], [id number] . [place], [address] tel: [phone] , [place] tel: [phone] [facility] Combined forms of Nov-0 Chris Refer ring Cataract PCL[facility] ASC age-related Mino. 2517 Provid er: And Laser cataract, left eye 1 NE [facility] [place], , [address] [place], [address] [facility], [address], [address], [id number], [facility], [place], [id number]. MD, tel: tel: [phone] , [place] tel: [phone] [facility] Combined forms of Nov-0 PCLI Refer ring Cataract PCLI ASC age-related [place] Provider: And Laser cataract, left eye 1 ASC. [facility] 1506, [place], , [address] [place], [address] [facility], [address], [address], [id number], [facility], [place], [id number]. MD, tel: tel: [phone] , [place] tel: [phone] [facility] Combined forms of Nov-0 Yung Referr ing Cataract [place] age-related Marquez. 6695 Provi eddie: [facility] cataract, left eye 1 W [facility] [place], , [address] [place], [address] [facility], [address], [place], [place]. Yan [place], tel:73 [place], [address] [place], [id number]. [id number] tel: , [place] [phone] tel:[phone] [facility] Combined forms of Nov-0 Yung Refer ring Cataract PCLI ASC age-related Marquez. 6695 Provi eddie: And Laser cataract, left eye [address] [facility] [place], [place], , [address] [place], [address] [place], [address], [address], Ave, [place]. [place], [place]: [place], [id number] . [place], [address] tel: [phone] , [place] tel: [phone] [facility] No Information Oct-2 [place] Cataract [place] Nabil. 3330 [facility] 06 19 [facility], , [address] [place], Jeremy [id number], Ave, [place]. [place], tel: [place], [phone] , [place] tel: [phone] OFFICE/OUTPA [facility] decreased Combined forms of Oct-2 [place] Referring TIENT VISIT, Cataract [place] vision age-related Mei. Pro vider: NEW [facility] (chief cataract, [address] [place] [address] complaint) bilateralGlaucoma [place], [facility], , [address] secondary to [place], [address] [facility] [place], [id number], [address], Ave, stage [place]. Tiki Marin[place], unspecified[place], [id number]. MD, specified [address] tel: [phone] postprocedural [phone] , [place] statesIrregular tel: astigmatism, [phone] bilateral Family History Family Member Type Diagnosis Age At Onset Mother Problem Cardiovascular disease Sister Problem Cancer, unknown Mother Problem Cataracts Payers Payer name Insurance type Covered libertarian ID Authorization(s ) [employer] OPTIONS [id number] NTF Faxe d MEDICAID [facility] [id number] Social History Type Description Quantity Date Captured Comments Sex Female Smoking Status No Information Chief Complaint And Reason For Visit No Information Plan Of Treatment Date Type Action Status Goal Tobacco cessation counseling com pleted History Of Present Illness Encounter Date Complaint History Of Present I llness decreased vision Patient states, over the last three months her vision has been getting wor se OS>OD. She cannot see to read numbers on houses an d driving when the sun goes down is extremely difficu lt due to glare. Crafting is getting increasingly difficult due to blurry vision and her bifocals do not help. She feels her glasses are always dirty titi n when they are not. Instructions Date Instruction Additional Informati on - Discussed cataracts with patient. Rel ated to Combined forms of Reviewed risks, benefits, age-related ca taract, bilateral alternatives of surgery. Discussed the possibility of glare, streaks, arcs and halos. Reviewed the need for Rx at distance and near postoperatively, as well as refractive endpoint. Specialty lens options discussed with patient. Patient declines and elects standard OU with emmetropic target. Option of CE IOL OU, OS first. Patient wishes to proceed with surgery. Patient elects topical anesthesia.Follow up with Dr. Gold - Discussed need for glaucoma Related t o Glaucoma secondary to work-up and close monitoring with drugs, bilateral, stage unspecified Dr. Gold. Stressed risk of permanent vision loss with glaucoma. Mar- - Discussed risk of refractive Related to Other specified surprise and variability in IOL postproc edural states calculations due to previous RK. Reviewed potential need for IOL exchange or LVC enhancement and additional risk associated with these procedures. Stressed with patient they will likely need Rx at distance, intermediate and near for best visual acuity. Reviewed differences in RK vs CE including healing timeline and accuracy of results. Stressed need for glasses post-CE. - Pentacam performed today. Follow Rela julio to Irregular astigmatism, up with Dr. Gold bilateral Assessments Type Assessment Date No Information
[2021-06-17] MEDS ORDERED: SENNOSIDES 1 TABLET PO SCH (21:00)
[2021-06-17] MEDS: 0.9 % SODIUM CHLORIDE 10 ML SYRINGE IV SCH (21:09)
[2021-06-17] MEDS: DOCUSATE SODIUM 100 MG CAPSULE PO SCH (21:22)
[2021-06-18] MEDS: 0.9 % SODIUM CHLORIDE 1,000 ML IV SCH ×3 (00:25→18:26)
[2021-06-18] MEDS: HYDROmorphone 0.5 MG/0.5 ML SYRINGE IV PRN ×10 (02:08→22:16)
[2021-06-18] MEDS: 0.9 % SODIUM CHLORIDE 10 ML SYRINGE IV SCH ×4 (05:04→20:10)
[2021-06-18] MEDS: DOCUSATE SODIUM 100 MG CAPSULE PO SCH ×2 (08:41→20:18)
--- NOTE | 2021-06-18 09:13 | EKG ---
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
--- NOTE | 2021-06-18 14:34 | Consultation ---
DATE OF CONSULTATION: 06/18/2021 HISTORY OF PRESENT ILLNESS: This is a very pleasant female who 2 weeks ago had surgery on her knee for a poly liner exchange for ligamentous laxity. She had this washed out. We took samples of the tissue, which showed no significant white cells. Yesterday she presented to the emergency room where she had some purulence from the incision. Also, swelling and increasing pain though she did not have a fever. She was afebrile. Her white count at 8000. Her CRP was elevated at 15, which was not unusual given the length from surgery, a little higher than what I expect and an ESR of 92. With these findings, she was admitted to the hospital and I admitted the patient and consulted on the patient as well from the emergency room. I reviewed her medication and what she had been taking. Apparently she had been having some cellulitis over the knee where she had been placed on clindamycin. 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 Otherwise, she was feeling quite well for about 10 to 14 days prior to the surgery and then this started fairly rapidly onset. PAST MEDICAL HISTORY: Her other medical problems include Crohn's. Noted is an elevated CRP in 2009. Her ESR is chronically elevated. She does have a history of fibromyalgia, also in 2011 she was diagnosed with hypothyroidism. Frequent urinary tract infections. PAST SURGICAL HISTORY: She has a history of multiple surgeries which include neck surgery, three knee surgeries bilaterally. She has had a colonoscopy. SOCIAL HISTORY: She does use tobacco. FAMILY HISTORY: Noncontributory. MEDICATIONS: Her medications are extensive, includin. Acyclovir. 2. Multivitamins. 3. Amlodipine. 4. Lyrica. 5. Levothyroxine. 6. Albuterol. 7. Etodolac. 8. Famotidine. 9. Hydrocodone 10 mg tablets postsurgical. 10. Meloxicam 7.5 mg b.i.d. ALLERGIES: She has allergies to many medications, which include: 1. SULFA. 2. AUGMENTIN. 3. AMOXICILLIN. 4. BEE STINGS. 5. ASPIRIN. 6. LISINOPRIL. 7. MORPHINE. 8. COOKED PEPPERS. REVIEW OF SYSTEMS: She has no active chest pain or shortness of breath. She has some dysuria on review of systems. PHYSICAL EXAMINATION: GENERAL: Very pleasant white female who is slightly obese, in no acute distress, but will not move her knee significantly. LUNGS: Clear to auscultation bilaterally. HEART: Regular rate and rhythm of her heart without a murmur. EXTREMITIES: Her foot is pink and warm with normal dorsal pedis pulses. Pain with any motion of the knee. IMAGING: X-rays of the knee show a well-positioned total knee arthroplasty. LABORATORY DATA: She does have a positive urinary tract infection with a UTI, positive leukocyte esterase greater than 500 with greater than 15 white blood cells. Her knee aspirate showed 40,000 white cells with a CRP of 15. ESR of 92. DIAGNOSES: 1. Septic knee. 2. Urinary tract infection. PLAN: I recommended that we wash out the knee, change out the poly liner as we are within 2 weeks of symptoms and put her on IV antibiotics, most likely vancomycin. She agrees with this plan. She understands the risks of the surgery up to including , heart attack, strokes, and even the chance that this will not resolve her infection and will require a complete revision. The patient agrees to proceed. RUBÉN:dread Job ID: [id number] Doc ID: [id number] Andreas Dinero MD
[2021-06-18] MEDS ORDERED: ROPIVACAINE HCL/PF 20 ML VIAL IJ ONE (15:50)
[2021-06-18] MEDS ORDERED: ONDANSETRON 4 MG/2 ML VIAL ONE (15:50)
[2021-06-18] MEDS ORDERED: MAGNESIUM SULFATE 2 GM/50 ML BAG IV ONE (15:50)
[2021-06-18] MEDS ORDERED: LIDOCAINE HCL/PF 100 MG/5 ML SYRINGE IV ONE (15:50)
[2021-06-18] MEDS ORDERED: DEXAMETHASONE 10 MG/ML VIAL ONE (15:50)
[2021-06-18] MEDS ORDERED: KETAMINE 50 MG/ML Syringe (ANEST) IV ONE (15:50)
[2021-06-18] MEDS ORDERED: fentaNYL 100 MCG/2 ML VIAL IV ONE (15:50)
[2021-06-18] MEDS ORDERED: PROPOFOL 200 MG/20 ML VIAL IV ONE (15:50)
[2021-06-18] MEDS ORDERED: VANCOMYCIN 1,500 MG in 0.9 % SODIUM CHLORIDE 500 ML IV SCH (16:00)
[2021-06-18] MEDS ORDERED: VANCOMYCIN 1,000 MG in 0.9 % SODIUM CHLORIDE 250 ML IV SCH (16:00)
[2021-06-18] MEDS ORDERED: LACTATED RINGERS 250 ML IV PRN (16:21)
[2021-06-18] MEDS ORDERED: ONDANSETRON 4 MG/2 ML VIAL IV PRN (16:21)
[2021-06-18] MEDS ORDERED: NALOXONE HCL 0.4 MG/ML VIAL IV PRN (16:21)
[2021-06-18] MEDS ORDERED: PROMETHAZINE 25 MG/ML VIAL IV PRN (16:21)
[2021-06-18] MEDS ORDERED: IPRATROPIUM/ALBUTEROL 3 ML AMPUL.NEB NEB PRN (16:21)
[2021-06-18] MEDS ORDERED: ACETAMINOPHEN 1,000 MG/100 ML BAG IV ONE (16:21)
[2021-06-18] MEDS ORDERED: LACTATED RINGERS 1,000 ML IV SCH (16:30)
--- NOTE | 2021-06-18 16:48 | Brief Operative Note ---
Brief Operative Note Date of procedure: 06/18/21 Pre-op diagnosis: left septic knee Post-op diagnosis: same Procedure: left knee debridement and irrigation with polyline exchange Grafts/Implants: Yes Anesthesia: GETA Complications: none Surgeon: Andreas Dinero Fitness Club Manager: He Garcia Estimated blood loss (cc): 20 Tourniquet Time (Minutes): 30 Specimens Removed/Pathology: none sent Condition: stable Disposition: PACU
[2021-06-18] MEDS ORDERED: POLYETHYLENE GLYCOL 3350 17 GM PACKET PO PRN (16:49)
[2021-06-18] MEDS ORDERED: BENZOCAINE/MENTHOL 1 LOZENGE PO PRN (16:49)
[2021-06-18] MEDS ORDERED: FLEETS ADULT ENEMA PR PRN (16:49)
[2021-06-18] MEDS ORDERED: TEMAZEPAM 15 MG CAPSULE PO PRN (16:49)
[2021-06-18] MEDS ORDERED: BISACODYL 10 MG SUPP.RECT PR PRN (16:49)
[2021-06-18] MEDS ORDERED: TRANEXAMIC ACID 1,000 MG/10 ML VIAL IV SCH (16:49)
[2021-06-18] MEDS ORDERED: MAGNESIUM HYDROXIDE 30 ML ORAL.SUSP PO PRN (16:49)
[2021-06-18] MEDS ORDERED: ACETAMINOPHEN 325 MG TABLET PO PRN (16:49)
[2021-06-18] MEDS ORDERED: HYDROcodone/APAP 10/325MG TABLET PO PRN (16:54)
[2021-06-18] MEDS ORDERED: CLOBETASOL PROP OINT 0.05% TUBE 15GM TOPICAL PRN (16:54)
[2021-06-18] MEDS ORDERED: NON FORMULARY MEDICATION 1 DOSE MISCELL (Epinephrine 0.3 mg/0.3 mL auto-injector) IM PRN (16:54)
[2021-06-18] MEDS ORDERED: VANCOMYCIN PER PHARMACY IV SCH (16:56)
[2021-06-18] MEDS ORDERED: ceFAZolin 1 GM VIAL IV SCH (17:00)
[2021-06-18] MEDS ORDERED: GENTAMICIN SULFATE 800 MG/20 ML VIAL IR ONE (17:05)
[2021-06-18] MEDS ORDERED: ALBUTEROL SULFATE 200 PUFF INHALER INH PRN (17:06)
[2021-06-18] MEDS: fentaNYL 100 MCG/2 ML VIAL IV PRN ×4 (17:10→17:20)
[2021-06-18] MEDS ORDERED: ACYCLOVIR 400 MG TABLET PO PRN (17:11)
[2021-06-18] MEDS ORDERED: VANCOMYCIN 1 GM VIAL TOPICAL ONE (17:15)
[2021-06-18] MEDS: MEPERIDINE 25 MG/ML VIAL IV PRN ×2 (17:21→17:26)
[2021-06-18] MEDS ORDERED: HYDROmorphone 0.5 MG/0.5 ML SYRINGE IV PRN (17:30)
--- NOTE | 2021-06-18 17:47 | XRay Report ---
HISTORY: Postop left knee arthroplasty FINDINGS: Patient has a left knee prosthesis is well-positioned. There is no reabsorption of bone around the hardware. Alignment of the prosthesis is unchanged from the prior x-ray done on 05/24/21. There is a large collection of gas in the subcutaneous tissues anterior to the patella. This may be within the prepatellar bursa. IMPRESSION: Normal postoperative changes following left knee arthroplasty Interpreted and Authenticated by: Ari Caraballo 06/18/21
[2021-06-18] MEDS: 0.45 % SODIUM CHLORIDE 1,000 ML IV SCH (18:00)
[2021-06-18] MEDS: PREGABALIN 25 MG CAPSULE PO SCH (20:16)
[2021-06-18] MEDS: amLODIPine 10 MG TABLET PO SCH (20:16)
[2021-06-18] MEDS: PRAMIPEXOLE 1 MG TABLET PO SCH (20:16)
[2021-06-18] MEDS: ASPIRIN 81 MG TAB.CHEW PO SCH (20:17)
[2021-06-18] MEDS: ATORVASTATIN 40 MG TABLET PO SCH (20:17)
[2021-06-18] MEDS: MELOXICAM 7.5 MG TABLET PO SCH (20:17)
[2021-06-18] MEDS: SENNOSIDES 1 TABLET PO SCH (20:18)
[2021-06-19] MEDS: HYDROmorphone 0.5 MG/0.5 ML SYRINGE IV PRN ×2 (01:18→12:26)
[2021-06-19] MEDS: 0.45 % SODIUM CHLORIDE 1,000 ML IV SCH ×3 (01:59→21:05)
[2021-06-19] MEDS ORDERED: VANCOMYCIN 1,500 MG in 0.9 % SODIUM CHLORIDE 500 ML IV ONE (02:00)
[2021-06-19] MEDS: HYDROcodone/APAP 10/325MG TABLET PO PRN ×7 (02:50→23:51)
[2021-06-19] MEDS: 0.9 % SODIUM CHLORIDE 10 ML SYRINGE IV SCH ×5 (04:06→20:36)
[2021-06-19] MEDS: LEVOTHYROXINE 100 MCG TABLET PO SCH (06:52)
[2021-06-19] MEDS: LEVOTHYROXINE 88 MCG TABLET PO SCH (06:52)
--- NOTE | 2021-06-19 08:12 | Orthopedic Progress Note ---
SUBJECTIVE Subjective Patient information: Note initiated : 06/19/21 at 8:11 am Service Date, if different from initiated Date: [] Patient: Sayra Alvarado 50 y/o F admitted on 06/17/21 for fever, left knee pain. Chief Complaint: [] Principal diagnosis: septic joint Constitutional Vitals: Vital Signs Temp Pulse Resp BP Pulse Ox 96.0 F L 70 18 151/90 95 06/19/21 02:17 06/19/21 02:17 06/19/21 02:17 06/19/21 02:17 06/19/21 02:17 Period Temp Pulse Resp BP Sys/Aquino Pulse Ox Last 24 Hr 95.8 F-98.1 F 70-90 9-25 141-179/84-157 88-100 Intake and Output 06/18/21 06/19/21 06/19/21 21:59 05:59 13:59 Intake Total 3200 2720 Output Total 700 1150 Balance 2500 1570 Weight 201 lb 4.8 oz Intake & Output: Intake & Output 06/18/21 06/19/21 06/19/21 21:59 05:59 13:59 Intake Total 3200 2720 Output Total 700 1150 Balance 2500 1570 Weight 201 lb 4.8 oz Intake: IV 1600 1500 Sodium Chloride 0.45% 1,000 ml 1000 @ 100 mls/hr IV .Q10H [facility] Rx#: [id number] Sodium Chloride 0.9% 1,000 ml @ 1000 125 mls/hr IV .Q8H [facility] Rx#: [id number] Vancomycin 1,500 mg In Sodium 500 500 Chloride 0.9% 500 ml @ 333.3 mls/hr IV ONCE ONE Rx#: [id number] Oral 1220 IV - Manual Only 1600 Output: Void Amount 650 1150 Estimated Blood Loss 50 Other: Meal Dinner Percent of Meal Consumed 100% Feeding Ability Independent Urine Appearance Clear Clear Urine Color Bright Yellow Bright Yellow Neurological Exam Neurological exam: Present abnormal gait and alert OBJ DATA Labs CBC & Chem 7: 06/19/21 05:11 Labs: Abnormal Lab Results 06/17/21 06/17/21 06/17/21 13:59 10:30 10:05 POC Hct 33 L Neut % (Auto) Lymph % (Auto) Lymph # (Auto) ESR POC Potassium 3.2 L POC Total CO2 19 L POC WB Ioniz Calcium 1.03 L C-Reactive Protein 23.60 H Urine Appearance Hazy A Urine Protein 30 A Ur Leukocyte Esterase 500 A Urine RBC 9 H Urine WBC 24 H Ur Squamous Epith Cells 10 H Urine Mucus Many A Synovial Neutrophils 89 H 06/17/21 10:05 POC Hct Neut % (Auto) 80.2 H Lymph % (Auto) 9.7 L Lymph # (Auto) 0.86 L ESR 94 H POC Potassium POC Total CO2 POC WB Ioniz Calcium C-Reactive Protein Urine Appearance Urine Protein Ur Leukocyte Esterase Urine RBC Urine WBC Ur Squamous Epith Cells Urine Mucus Synovial Neutrophils Meds: Medications Acetaminophen (Acetaminophen 325 Mg Tablet) 650 mg PO Q6HP PRN; Protocol PRN Reason: Per Pain Protocol/Fever > 101 Hydrocodone Bitart/Acetaminophen (Hydrocodone/Apap 10/325mg Tablet) 1 - 2 tab PO Q4HP PRN; Protocol PRN Reason: Per Pain Protocol Last Admin: 06/19/21 06:52 Dose: 2 tab Documented by: Acyclovir (Acyclovir 400 Mg Tablet) 400 mg PO DAILYP PRN PRN Reason: COLD SORES Albuterol Sulfate (Albuterol Sulfate 200 Puff Inhaler) 1 - 2 puff INH Q4HP PRN PRN Reason: Shortness Of Breath Amlodipine Besylate (Amlodipine 10 Mg Tablet) 10 mg PO [facility] Last Admin: 06/18/21 20:16 Dose: 10 mg Documented by: Aspirin (Aspirin 81 Mg Tab.Chew) 81 mg PO BID [facility] Last Admin: 06/18/21 20:17 Dose: Not Given Documented by: Atorvastatin Calcium (Atorvastatin 40 Mg Tablet) 40 mg PO QHS [facility] Last Admin: 06/18/21 20:17 Dose: 40 mg Documented by: Bisacodyl (Bisacodyl 10 Mg Supp.Rect) 10 mg ND Q2-3DAYS PRN PRN Reason: Constipation Clobetasol Propionate (Clobetasol Prop Oint 0.05% Tube 15gm) 1 dose TOPICAL DAILYP PRN PRN Reason: Rash Docusate Sodium (Docusate Sodium 100 Mg Capsule) 100 mg PO BID [facility] Last Admin: 06/18/21 20:18 Dose: 100 mg Documented by: Escitalopram Oxalate (Escitalopram 10 Mg Tablet) 10 mg PO QDAY [facility] Famotidine (Famotidine 20 Mg Tablet) 40 mg PO QDAY [facility] Hydromorphone HCl (Hydromorphone 0.5 Mg/0.5 Ml Syringe) 1 mg IV Q2HP PRN; Protocol PRN Reason: Per Pain Protocol Last Admin: 06/19/21 01:18 Dose: 1 mg Documented by: Sodium Chloride (Sodium Chloride 0.45%) 1,000 mls @ 100 mls/hr IV .Q10H [facility] Last Infusion: 06/19/21 04:06 Dose: Infused Documented by: Iron Carb/Multivit/[place]/Folic Acid (Multivit,Ther Iron,Ca,Fa & Min 1 Tablet) 1 tab PO DAILY [facility] Leflunomide (Leflunomide 20 Mg Tablet) 20 mg PO QDAY [facility] Levothyroxine Sodium (Levothyroxine 100 Mcg Tablet) 200 mcg PO ACB [facility] Last Admin: 06/19/21 06:52 Dose: 200 mcg Documented by: Levothyroxine Sodium (Levothyroxine 88 Mcg Tablet) 88 mcg PO QAMAC [facility] Last Admin: 06/19/21 06:52 Dose: 88 mcg Documented by: Magnesium Hydroxide (Magnesium Hydroxide 30 Ml Oral.Susp) 30 ml PO BIDP PRN PRN Reason: Constipation Meloxicam (Meloxicam 7.5 Mg Tablet) 7.5 mg PO BID [facility]; Protocol Last Admin: 06/18/21 20:17 Dose: 7.5 mg Documented by: Ondansetron HCl (Ondansetron 4 Mg/2 Ml Vial) 4 mg IV Q4HP PRN PRN Reason: Nausea And Vomiting Polyethylene Glycol (Polyethylene Glycol 3350 17 Gm Packet) 17 gm PO DAILYP PRN PRN Reason: Constipation Pramipexole Dihydrochloride (Pramipexole 1 Mg Tablet) 1.5 mg PO BID [facility] Last Admin: 06/18/21 20:16 Dose: 1.5 mg Documented by: Pregabalin (Pregabalin 25 Mg Capsule) 50 mg PO TID [facility] Last Admin: 06/18/21 20:16 Dose: 50 mg Documented by: Senna (Sennosides 1 Tablet) 2 tab PO HS [facility] Last Admin: 06/18/21 20:18 Dose: 2 tab Documented by: Sodium Biphosphate/Sodium Phosphate (Fleets Adult Enema) 1 dose ND Q3-4DAYS PRN PRN Reason: Constipation Sodium Chloride (0.9 % Sodium Chloride 10 Ml Syringe) 10 ml IV Q8 [facility] Last Admin: 06/19/21 04:06 Dose: Not Given Documented by: Sodium Chloride (0.9 % Sodium Chloride 10 Ml Syringe) 10 ml IV Q8 [facility] Last Admin: 06/19/21 04:06 Dose: Not Given Documented by: Temazepam (Temazepam 15 Mg Capsule) 15 mg PO HSP PRN PRN Reason: Insomnia Throat Lozenges (Benzocaine/Menthol 1 Lozenge) 1 lozenge PO PRN PRN PRN Reason: Sore Throat Vancomycin HCl (Vancomycin Per Pharmacy) 1 order IV UD [facility]; Protocol EKG Data EKG shows normal: sinus rhythm A/P Time Spent With Patient Time: Total time spent is greater than 50% in coordination of care (as documented) at patient's floor/unit and/or counseling patient: Total time spent with greater than 50% in coordination of care (as documented) at patient's floor/unit and/or counseling patient:: 15 - 24 minutes
--- NOTE | 2021-06-19 08:14 | Operative Note ---
DATE OF OPERATION: 06/18/2021 PREOPERATIVE DIAGNOSIS: Left septic knee. POSTOPERATIVE DIAGNOSES: 1. Left septic knee. 2. Urinary tract infection. 3. Diabetes. 4. Chronic narcotic use. PROCEDURE: Left knee debridement and irrigation and poly liner exchange, first stage infection. SURGEON: Andreas Dinero M.D. SIGN HANGER SUPERVISOR: He Garcia PA-C. This providers expertise and technical skill were required throughout the case. The LUIS assisted with preoperative coordination, intraoperative retraction, wound closure, and dressing and splint application, as well as postoperative documentation and care coordination. ANESTHESIA: General LMA anesthesia. COMPLICATIONS: None. TOURNIQUET TIME: Approximately 30 minutes at 250 pounds of pressure. DISPOSITION: To PACU. IMPLANTS: Patient did have vancomycin powder placed within the joint as well as a size 10 poly liner exchange. DESCRIPTION OF PROCEDURE: The patient was brought to the operating room, put to sleep with general LMA anesthesia. Once asleep, the patient had the left leg sterilely prepped and draped in the usual sterile fashion. Timeout was performed, confirming the left leg as the operative site by initials, consent form, and x-rays. We reviewed the labs and all indicated there is a probable early infection and a urinary tract infection. With this, we made a midline incision and purulence came out of the prepatellar space. This also communicated with the joint superiorly and inferiorly. The capsule was then opened and there was infection intraarticularly. At this point, we removed the poly liner and performed a synovectomy. We used chlorhexidine solution 0.1% and then washed the metal implants and poly of the patella. We irrigated thoroughly and removed the Stratafix sutures that were present. After 6 liters of irrigation and pulse lavage through the joint, we then placed vancomycin powder. We placed a 10 mm thick poly liner with vitamin E impregnation. We closed the capsule with #1 Stratafix x2. More vancomycin powder was placed in the subcutaneous space for a total of 1 gram split between intra-articular powder and prepatellar bursal powder. We then closed the skin with Monocryl and then sigifredo superficially. The patient tolerated this well. There was no complication. Tourniquet was deflated at approximately 30 minutes. RUBÉN:nithin Job ID: [id number] Doc ID: [id number] Andreas Dinero MD
[2021-06-19] MEDS: ARIPIPRAZOLE 5 MG TABLET PO SCH (09:01)
[2021-06-19] MEDS: ASPIRIN 81 MG TAB.CHEW PO SCH ×2 (09:02→19:45)
[2021-06-19] MEDS: PRAMIPEXOLE 1 MG TABLET PO SCH ×2 (09:03→19:44)
[2021-06-19] MEDS: PREGABALIN 25 MG CAPSULE PO SCH ×3 (09:04→19:44)
[2021-06-19] MEDS: MULTIVIT,THER IRON,CA,FA & MIN 1 TABLET PO SCH (09:04)
[2021-06-19] MEDS: FAMOTIDINE 20 MG TABLET PO SCH (09:04)
[2021-06-19] MEDS: MELOXICAM 7.5 MG TABLET PO SCH ×2 (09:05→19:46)
[2021-06-19] MEDS: DOCUSATE SODIUM 100 MG CAPSULE PO SCH ×2 (10:01→19:46)
[2021-06-19] MEDS: LEFLUNOMIDE 20 MG TABLET PO SCH (10:01)
[2021-06-19] MEDS: ESCITALOPRAM 10 MG TABLET PO SCH (10:06)
[2021-06-19] MEDS: VANCOMYCIN 1,500 MG in 0.9 % SODIUM CHLORIDE 500 ML IV SCH ×2 (12:26→20:34)
[2021-06-19] MEDS: SENNOSIDES 1 TABLET PO SCH (19:43)
[2021-06-19] MEDS: amLODIPine 10 MG TABLET PO SCH (19:45)
[2021-06-19] MEDS: ATORVASTATIN 40 MG TABLET PO SCH (19:46)
[2021-06-19] MEDS: diphenhydrAMINE 25 MG CAPSULE PO PRN (23:48)
[2021-06-20] MEDS: ONDANSETRON 4 MG/2 ML VIAL IV PRN ×2 (04:52→16:35)
[2021-06-20] MEDS: HYDROcodone/APAP 10/325MG TABLET PO PRN ×5 (04:52→21:34)
[2021-06-20] MEDS: 0.9 % SODIUM CHLORIDE 10 ML SYRINGE IV SCH ×3 (04:53→21:56)
[2021-06-20] MEDS: LEVOTHYROXINE 100 MCG TABLET PO SCH (07:34)
[2021-06-20] MEDS: LEVOTHYROXINE 88 MCG TABLET PO SCH (07:34)
[2021-06-20] MEDS: 0.45 % SODIUM CHLORIDE 1,000 ML IV SCH ×2 (09:05→18:49)
[2021-06-20] MEDS: ASPIRIN 81 MG TAB.CHEW PO SCH ×2 (09:06→19:21)
[2021-06-20] MEDS: MULTIVIT,THER IRON,CA,FA & MIN 1 TABLET PO SCH (09:06)
[2021-06-20] MEDS: ARIPIPRAZOLE 5 MG TABLET PO SCH (09:06)
[2021-06-20] MEDS: DOCUSATE SODIUM 100 MG CAPSULE PO SCH ×2 (09:07→19:21)
[2021-06-20] MEDS: ESCITALOPRAM 10 MG TABLET PO SCH (09:07)
[2021-06-20] MEDS: PREGABALIN 25 MG CAPSULE PO SCH ×3 (09:07→19:22)
[2021-06-20] MEDS: MELOXICAM 7.5 MG TABLET PO SCH ×2 (09:08→19:21)
[2021-06-20] MEDS: PRAMIPEXOLE 1 MG TABLET PO SCH ×2 (09:08→19:21)
[2021-06-20] MEDS: FAMOTIDINE 20 MG TABLET PO SCH (09:08)
[2021-06-20] MEDS: diphenhydrAMINE 25 MG CAPSULE PO PRN ×3 (09:14→21:34)
[2021-06-20] MEDS: LEFLUNOMIDE 20 MG TABLET PO SCH (09:14)
[2021-06-20] MEDS: VANCOMYCIN 1,500 MG in 0.9 % SODIUM CHLORIDE 500 ML IV SCH ×2 (11:05→21:54)
--- NOTE | 2021-06-20 17:48 | Orthopedic Progress Note ---
SUBJECTIVE Subjective Patient information: Note initiated : 06/20/21 at 5:44 pm Service Date, if different from initiated Date: [] Patient: Sayra Alvarado 50 y/o F admitted on 06/17/21 for fever, left knee pain. Chief Complaint: [no nausea nor vomiting and minimal pain] Principal diagnosis: septic joint Pertinent ROS: no fever Constitutional Vitals: Vital Signs Temp Pulse Resp BP Pulse Ox 97.0 F 74 20 144/88 98 06/20/21 16:00 06/20/21 16:00 06/20/21 16:00 06/20/21 16:00 06/20/21 16:00 Period Temp Pulse Resp BP Sys/Aquino Pulse Ox Last 24 Hr 97.0 F-97.7 F 67-90 12-20 141-157/80-99 94-98 Intake and Output 06/20/21 06/20/21 06/20/21 05:59 13:59 21:59 Intake Total 5696 599 4100 Output Total 1500 650 700 Balance -200 210 500 Intake & Output: Intake & Output 06/20/21 06/20/21 06/20/21 05:59 13:59 21:59 Intake Total 8527 488 9238 Output Total 1500 650 700 Balance -200 210 500 Intake: IV 500 500 Vancomycin 1,500 mg In Sodium 500 500 Chloride 0.9% 500 ml @ 333.3 mls/hr IV Q12H [facility] Rx#: [id number] Oral [phone] Output: Void Amount 1500 650 700 Other: Meal Lunch Percent of Meal Consumed 100% Feeding Ability Assist with Tray Set Up Urine Appearance Clear Clear Clear Urine Color Bright Yellow Bright Yellow Dark Yellow Urine Odor Normal Strong Respiratory Respiratory exam: Present normal respiratory exam Cardiovascular Cardiovascular exam: Present normal rate and rhythm GI/Abdominal GI/Abdominal exam: Present normal bowel sounds Expanded Lower Extremity Exam Hip exam: Present swelling Knee exam: Present effusion and swelling OBJ DATA Labs CBC & Chem 7: 06/19/21 05:11 Meds: Medications Acetaminophen (Acetaminophen 325 Mg Tablet) 650 mg PO Q6HP PRN; Protocol PRN Reason: Per Pain Protocol/Fever > 101 Hydrocodone Bitart/Acetaminophen (Hydrocodone/Apap 10/325mg Tablet) 1 - 2 tab PO Q4HP PRN; Protocol PRN Reason: Per Pain Protocol Last Admin: 06/20/21 17:15 Dose: 2 tab Documented by: Acyclovir (Acyclovir 400 Mg Tablet) 400 mg PO DAILYP PRN PRN Reason: COLD SORES Last Admin: 06/20/21 07:35 Dose: 400 mg Documented by: Albuterol Sulfate (Albuterol Sulfate 200 Puff Inhaler) 1 - 2 puff INH Q4HP PRN PRN Reason: Shortness Of Breath Amlodipine Besylate (Amlodipine 10 Mg Tablet) 10 mg PO HS [facility] Last Admin: 06/19/21 19:45 Dose: 10 mg Documented by: Aspirin (Aspirin 81 Mg Tab.Chew) 81 mg PO BID [facility] Last Admin: 06/20/21 09:06 Dose: 81 mg Documented by: Atorvastatin Calcium (Atorvastatin 40 Mg Tablet) 40 mg PO QHS [facility] Last Admin: 06/19/21 19:46 Dose: 40 mg Documented by: Bisacodyl (Bisacodyl 10 Mg Supp.Rect) 10 mg CO Q2-3DAYS PRN PRN Reason: Constipation Clobetasol Propionate (Clobetasol Prop Oint 0.05% Tube 15gm) 1 dose TOPICAL DAILYP PRN PRN Reason: Rash Diphenhydramine HCl (Diphenhydramine 25 Mg Capsule) 25 mg PO Q6HP PRN PRN Reason: Allergic Symptoms Last Admin: 06/20/21 16:42 Dose: 25 mg Documented by: Docusate Sodium (Docusate Sodium 100 Mg Capsule) 100 mg PO BID [facility] Last Admin: 06/20/21 09:07 Dose: 100 mg Documented by: Escitalopram Oxalate (Escitalopram 10 Mg Tablet) 10 mg PO QDAY [facility] Last Admin: 06/20/21 09:07 Dose: 10 mg Documented by: Famotidine (Famotidine 20 Mg Tablet) 40 mg PO QDAY [facility] Last Admin: 06/20/21 09:08 Dose: 40 mg Documented by: Hydromorphone HCl (Hydromorphone 0.5 Mg/0.5 Ml Syringe) 1 mg IV Q2HP PRN; Protocol PRN Reason: Per Pain Protocol Last Admin: 06/19/21 12:26 Dose: 1 mg Documented by: Sodium Chloride (Sodium Chloride 0.45%) 1,000 mls @ 100 mls/hr IV .Q10H [facility] Last Admin: 06/20/21 09:05 Dose: Not Given Documented by: Vancomycin HCl 1,500 mg/ (Sodium Chloride) 500 mls @ 333.3 mls/hr IV Q12H [facility] Last Infusion: 06/20/21 12:57 Dose: Infused Documented by: Iron Carb/Multivit/Cotton/Folic Acid (Multivit,Ther Iron,Ca,Fa & Min 1 Tablet) 1 tab PO DAILY [facility] Last Admin: 06/20/21 09:06 Dose: 1 tab Documented by: Leflunomide (Leflunomide 20 Mg Tablet) 20 mg PO QDAY [facility] Last Admin: 06/20/21 09:14 Dose: 20 mg Documented by: Levothyroxine Sodium (Levothyroxine 100 Mcg Tablet) 200 mcg PO ACB [facility] Last Admin: 06/20/21 07:34 Dose: 200 mcg Documented by: Levothyroxine Sodium (Levothyroxine 88 Mcg Tablet) 88 mcg PO QAMAC [facility] Last Admin: 06/20/21 07:34 Dose: 88 mcg Documented by: Magnesium Hydroxide (Magnesium Hydroxide 30 Ml Oral.Susp) 30 ml PO BIDP PRN PRN Reason: Constipation Meloxicam (Meloxicam 7.5 Mg Tablet) 7.5 mg PO BID [facility]; Protocol Last Admin: 06/20/21 09:08 Dose: 7.5 mg Documented by: Ondansetron HCl (Ondansetron 4 Mg/2 Ml Vial) 4 mg IV Q4HP PRN PRN Reason: Nausea And Vomiting Last Admin: 06/20/21 16:35 Dose: 4 mg Documented by: Polyethylene Glycol (Polyethylene Glycol 3350 17 Gm Packet) 17 gm PO DAILYP PRN PRN Reason: Constipation Pramipexole Dihydrochloride (Pramipexole 1 Mg Tablet) 1.5 mg PO BID [facility] Last Admin: 06/20/21 09:08 Dose: 1.5 mg Documented by: Pregabalin (Pregabalin 25 Mg Capsule) 50 mg PO TID [facility] Last Admin: 06/20/21 15:09 Dose: 50 mg Documented by: Senna (Sennosides 1 Tablet) 2 tab PO HS [facility] Last Admin: 06/19/21 19:43 Dose: 2 tab Documented by: Sodium Biphosphate/Sodium Phosphate (Fleets Adult Enema) 1 dose CO Q3-4DAYS PRN PRN Reason: Constipation Sodium Chloride (0.9 % Sodium Chloride 10 Ml Syringe) 10 ml IV Q8 [facility] Last Admin: 06/20/21 13:18 Dose: 10 ml Documented by: Temazepam (Temazepam 15 Mg Capsule) 15 mg PO HSP PRN PRN Reason: Insomnia Throat Lozenges (Benzocaine/Menthol 1 Lozenge) 1 lozenge PO PRN PRN PRN Reason: Sore Throat Vancomycin HCl (Vancomycin Per Pharmacy) 1 order IV UD [facility]; Protocol A/P Narrative A/P Narrative: dc home in am set up picc line to be done as out patient Time Spent With Patient Time: Total time spent is greater than 50% in coordination of care (as documented) at patient's floor/unit and/or counseling patient: Total time spent with greater than 50% in coordination of care (as documented) at patient's floor/unit and/or counseling patient:: 15 - 24 minutes
[2021-06-20] MEDS: amLODIPine 10 MG TABLET PO SCH (19:20)
[2021-06-20] MEDS: SENNOSIDES 1 TABLET PO SCH (19:20)
[2021-06-20] MEDS: ATORVASTATIN 40 MG TABLET PO SCH (19:21)
[2021-06-21] MEDS: HYDROmorphone 0.5 MG/0.5 ML SYRINGE IV PRN (01:25)
[2021-06-21] MEDS: ONDANSETRON 4 MG/2 ML VIAL IV PRN ×2 (01:33→08:30)
[2021-06-21] MEDS: HYDROcodone/APAP 10/325MG TABLET PO PRN ×3 (05:07→13:59)
[2021-06-21] MEDS: 0.9 % SODIUM CHLORIDE 10 ML SYRINGE IV SCH ×2 (06:54→14:06)
[2021-06-21] MEDS: LEVOTHYROXINE 88 MCG TABLET PO SCH (07:27)
[2021-06-21] MEDS: LEVOTHYROXINE 100 MCG TABLET PO SCH (07:27)
[2021-06-21] MEDS: ARIPIPRAZOLE 5 MG TABLET PO SCH (08:30)
[2021-06-21] MEDS: PRAMIPEXOLE 1 MG TABLET PO SCH (08:30)
[2021-06-21] MEDS: LEFLUNOMIDE 20 MG TABLET PO SCH (08:30)
[2021-06-21] MEDS: DOCUSATE SODIUM 100 MG CAPSULE PO SCH (08:31)
[2021-06-21] MEDS: diphenhydrAMINE 25 MG CAPSULE PO PRN (08:31)
[2021-06-21] MEDS: ASPIRIN 81 MG TAB.CHEW PO SCH (08:31)
[2021-06-21] MEDS: ESCITALOPRAM 10 MG TABLET PO SCH (08:31)
[2021-06-21] MEDS: FAMOTIDINE 20 MG TABLET PO SCH (08:31)
[2021-06-21] MEDS: PREGABALIN 25 MG CAPSULE PO SCH ×2 (08:31→13:58)
[2021-06-21] MEDS: MELOXICAM 7.5 MG TABLET PO SCH (08:31)
[2021-06-21] MEDS: MULTIVIT,THER IRON,CA,FA & MIN 1 TABLET PO SCH (08:32)
[2021-06-21] MEDS: VANCOMYCIN 1,500 MG in 0.9 % SODIUM CHLORIDE 500 ML IV SCH (08:32)
[2021-06-21] MEDS ORDERED: 0.9 % SODIUM CHLORIDE 10 ML SYRINGE IV PRN (11:04)
[2021-06-21] MEDS ORDERED: 0.9 % SODIUM CHLORIDE 10 ML SYRINGE IV SCH (21:00)
--- NOTE | 2021-08-21 15:29 | Discharge Summary ---
DATE OF ADMISSION: 06/17/2021 DATE OF DISCHARGE: 06/21/2021 ADMITTING DIAGNOSIS: Left septic knee. DISCHARGE DIAGNOSES: Left septic knee with revision left total knee arthroplasty, incision and drainage with poly liner exchange. HOSPITAL COURSE: This patient underwent surgery due to a septic total knee nearly 2 to 3 weeks following her original total joint arthroplasty. The patient's surgery went without complications. Following the surgery, she was admitted back to the hospital floor and cared for there. Patient's vital signs stayed stable throughout her hospital stay, including her activity and physical therapy, wound care, and antibiotic therapy that were all coordinated through Dr. Dinero. Once the patient met the discharge criteria on 06/21/2021, she was discharged to home. She received the standard, appropriate education regarding discharge medications, discharge followup recommendations, discharge for wound care, and physical therapy guidelines. Patient was discharged in a stable state and will follow up as an outpatient back in our office. BAP:dread Job ID: [id number] Doc ID: [id number] Christian Lui PA-C
== END 2021-06-21 14:50 | disposition home or self-care (01) | DRG 486 ==
LOC: ED 09:42 → MEDSUR 17:00
PROVIDERS: ADMIT Physician Assistant Medical; ATTEND Orthopaedic Surgery

== ENCOUNTER 2021-09-23 19:46 | Inpatient (IN) ==
[2021-09-23] MEDS ORDERED: 0.9 % SODIUM CHLORIDE 500 ML IV ONE (20:04)
[2021-09-23] MEDS ORDERED: HYDROmorphone 1 MG/ML SYRINGE IV ONE ×2 (20:07→21:52)
[2021-09-23] MEDS ORDERED: ONDANSETRON 4 MG/2 ML VIAL IV ONE (20:23)
[2021-09-23 21:07] LABS: Hematocrit 31.9 % (34.1-44.9); Hemoglobin 9.9 g/dL (11.2-15.7); Mean Cell Volume 87.4 fL (80.0-100.0); Mean Platelet Volume 9.4 fL (7.4-10.4); Platelet Count 506 K/mcL (140-440); RBC 3.65 M/mcL (3.59-5.38); Red Cell Distribution Width 14.6 % (11.5-14.5); WBC 7.6 K/mcL (4.5-11.0)
[2021-09-23 21:22] LABS: ALT/SGPT 10 U/L (<40); AST/SGOT 10 U/L (<32); Albumin 3.2 gm/dL (3.2-5.2); Albumin/Globulin Ratio 0.7 (1.0-2.3); Alkaline Phosphatase 129 U/L (39-117); Bilirubin,Total 0.2 mg/dL (0.1-1.0); Blood Urea Nitrogen 12 mg/dL (6-20); Calcium 9.5 mg/dL (8.6-10.4); Carbon Dioxide 23 mmol/L (22-30); Chloride 102 mmol/L (96-108); Globulin 4.6 gm/dL (2.2-3.7); Glomerular Filtration Rate 99; Glucose 95 mg/dL (70-105)
[2021-09-23 21:39] LABS: Basophils % (Manual) 1 % (0-2); Eosinophils % (Manual) 1 % (0-7); Lymphocytes % 30 % (15-49); Monocytes % (Manual) 9 % (1-12); RBC Morphology NORMAL (Normal); Segmented Neutrophils % 59 % (38-78)
[2021-09-23 21:40] LABS: Platelet Estimate INCREASED (Normal)
[2021-09-23] MEDS ORDERED: cefTRIAXone 1 GM VIAL IV ONE (21:52)
[2021-09-23] MEDS ORDERED: DAPTOmycin 500 MG VIAL IV SCH (22:00)
[2021-09-23] MEDS ORDERED: HYDROmorphone 1 MG/ML SYRINGE IV PRN (22:06)
[2021-09-23] MEDS: HYDROcodone/APAP 5/325MG TABLET PO PRN (22:50)
--- NOTE | 2021-09-24 01:22 | Emergency Department Note ---
HPI General Chief complaint: Extremity Injury, Lower Stated complaint: Left knee pain, N/V, fever Time Seen by Provider: 09/23/21 19:53 Source: patient Mode of arrival: ambulatory Limitations: no limitations History of Present Illness HPI Narrative: Narrative: 51-year-old female with history of knee surgery with multiple revisions and septic joint approximately 2 months ago presents for evaluation of about 2 days of swelling and pain with difficulty bearing weight and associated with nausea vomiting general malaise and subjective fever and chills. She denies chest pain or shortness of breath. She denies recent illness. She denies abdominal pain. She denies dysuria. She denies any trauma. Her orthopedist is Dr. Sanders. She has multiple antibiotic allergies including vancomycin, Augmentin, sulfa. Related Data Home Medications Medication Instructions Recorded Confirmed acyclovir 800 mg tablet 400 mg PO PRN PRN 05/07/19 08/06/21 aripiprazole 15 mg tablet 15 mg PO DAILY 05/07/19 08/06/21 multivitamin 1 each PO DAILY 05/07/19 08/06/21 pramipexole 1.5 mg tablet,extended 1.5 mg PO BID 05/07/19 08/06/21 release 24 hr amlodipine 5 mg tablet 10 mg PO HS 06/23/19 08/06/21 pregabalin 100 mg capsule (Lyrica) 50 mg PO TID cap 03/05/21 08/06/21 levothyroxine 200 mcg tablet 288 mcg PO QDAY 05/17/21 08/06/21 albuterol 90 mcg/actuation aerosol 90 mcg INHALATION PRN PRN 06/17/21 08/06/21 inhaler atorvastatin 40 mg tablet 40 mg PO QHS 06/17/21 08/06/21 clobetasol 0.05 % topical ointment 0.05 ea TOPICAL PRN PRN 06/17/21 08/06/21 epinephrine 0.3 mg/0.3 mL 0.3 mg IM PRN PRN 06/17/21 08/06/21 injection, auto-injector escitalopram oxalate 10 mg tablet 10 mg PO QDAY 06/17/21 08/06/21 famotidine 40 mg tablet 40 mg PO QDAY 06/17/21 08/06/21 meloxicam 7.5 mg tablet 7.5 mg PO BID 06/17/21 08/06/21 cephalexin 500 mg capsule 500 mg PO QID 08/06/21 08/06/21 Previous Rx's Medication Instructions Recorded hydrocodone 10 mg-acetaminophen 1 - 2 tab PO Q4HP PRN #60 tab 06/20/21 325 mg tablet leflunomide 20 mg tablet 20 mg PO QDAY #30 tab 07/02/21 diclofenac sodium 1 % topical gel See Rx Instructions .ROUTE 07/09/21 .COMPLEX #100 g albuterol sulfate 90 mcg/actuation 2 puff INHALATION Q6H PRN #8.5 g 09/02/21 aerosol inhaler Allergies Allergy/AdvReac Type Severity Reaction Status Date / Time Bee Pollen Allergy Severe Anaphylaxis Verified 09/23/21 19:50 carisoprodol Allergy Severe Difficulty Verified 09/23/21 19:50 Breathing Amoxicillin [From Augmentin] Allergy Mild Rash Verified 09/23/21 19:50 lisinopril Allergy Mild Rash Verified 09/23/21 19:50 sucralfate [From Carafate] Allergy Mild Rash Verified 09/23/21 19:50 Sulfa (Sulfonamide Allergy Mild Rash Verified 09/23/21 19:50 Antibiotics) aspirin AdvReac Mild Nose Bleed Verified 09/23/21 19:50 Iodinated Contrast Media AdvReac Mild Anxiety Verified 09/23/21 19:50 morphine AdvReac Mild Irritable Verified 09/23/21 19:50 Review of Systems ROS ROS Narrative: Narrative: All systems ED: reviewed and negative except as stated. [facility] Narrative Patient History Narrative: Narrative: Medical/Surgical/Family History All Active Problems (Updated 09/24/21 @ 01:29 by Terry Boone DO) Septic arthritis (Acute) Left leg swelling (Acute) Effusion of knee joint, left (Acute) Exposure to COVID-19 virus (Acute) Acute sinusitis (Acute) Acid reflux (Chronic) COPD (chronic obstructive pulmonary disease) (Chronic) Crohn's disease (Chronic) Depressive disorder (Chronic) Hypertension, essential (Chronic) Hypothyroidism (acquired) (Chronic) Insomnia (Chronic) Tobacco abuse (Chronic) Osteoarthritis (Chronic) Obstructive sleep apnea syndrome (Chronic) Fibromyalgia (Chronic) Tear of meniscus of right knee (Chronic) Encounter for long-term (current) use of other high-risk medications (Acute) Chondrocalcinosis (Acute) Osteoarthritis of spine (Chronic) Back pain (Chronic) Encounter for long-term (current) use of high-risk medication (Chronic) Plantar fasciitis (Chronic) Osteoarthritis of left knee (Chronic) Sciatica (Chronic) Lumbar radiculopathy (Chronic) Abdominal wall hernia (Chronic) Rheumatoid arthritis (Chronic) Anxiety (Chronic) Chest pain at rest (Acute) Shortness of breath (Acute) History of pulmonary embolus (PE) (Acute) ESR raised (Acute) CRP elevated (Acute) Back pain (Acute) Encounter for medication refill (Acute) Change of dressing (Acute) Occluded PICC line (Acute) PIC line (peripherally inserted central catheter) flush (Acute) Ankle sprain (Acute) Polyarthralgia (Chronic) Contact dermatitis (Acute) Allergic reaction (Acute) Oral candidiasis (Acute) Left acute otitis media (Acute) Post-op bleeding (Acute) Encounter for post surgical wound check (Acute) Postoperative cellulitis of surgical wound (Acute) Medical History Abdominal wall hernia Acid reflux 2012 Acute exacerbation of chronic obstructive airways disease Acute sinusitis Anxiety Back pain Chest pain Chondrocalcinosis COPD (chronic obstructive pulmonary disease) 2010 Crohn's disease 2010 CRP elevated Depressive disorder Encounter for long-term (current) use of high-risk medication Encounter for long-term (current) use of other high-risk medications Encounter for long-term current use of other high-risk medications ESR raised Exposure to COVID-19 virus Fibromyalgia Headache Headache Hypertension, essential 2012 Hypothyroidism (acquired) 07/20/2014 Insomnia 2010 Lumbar radiculopathy Migraine 1987 Obstructive sleep apnea syndrome Osteoarthritis Osteoarthritis of left knee Osteoarthritis of spine Plantar fasciitis Polyarthralgia Pre-syncope Rheumatoid arthritis Sciatica Tear of meniscus of right knee Tobacco abuse Tobacco abuse - smoking Urinary tract infection Uterine malignant neoplasm 1996 Surgical History History of back surgery x 7 History of colonoscopy 2011 History of elbow surgery Both elbows History of esophagogastroduodenoscopy 09/27/2014 History of eye surgery Both eyes History of hand surgery Wrist surgery; both wrists History of hernia surgery x 4 History of knee surgery x 3 History of neck surgery for chronic severe migraines History of thymectomy Thymus gland surgery Hx of total knee arthroplasty Family History Mother Family history of arthritis Migraine Father Essential hypertension Son Migraine Sister Carcinoma in situ of skin Social History Smoking Status: Current some day smoker Alcohol Intake Frequency: holiday/special occasion only Substance Use: does not use Exam Narrative Narrative: Narrative: General Limitations: no limitations General appearance: Present alert and in no apparent distress (Uncomfortable appearing but no acute distress) Head Head: Present atraumatic and normocephalic Eye Eye: Present normal appearance and EOMI ENT ENT: Present normal oropharynx and mucous membranes moist Neck Neck: Present normal inspection and full ROM Chest Chest: Present normal inspection and symmetric chest wall rise Respiratory Respiratory: Absent respiratory distress Cardiovascular Cardiovascular: Present regular rate and normal rhythm Extremities Extremities: Present other (Left knee with well-healed surgical scar, grossly edematous, pain with range of motion) Back Back: Present normal inspection and full ROM Neurological Neurological: Present alert and oriented X3 Psychiatric Psychiatric: Present normal affect and normal mood Skin Skin: Present warm (WNL), dry and normal color Course Vital Signs Vital signs: Vital Signs Temperature 98.1 F 09/23/21 19:48 Pulse Rate 102 H 09/23/21 19:48 Respiratory Rate 18 09/23/21 19:48 Blood Pressure 130/76 09/23/21 19:48 Pulse Oximetry (%) 97 09/23/21 19:48 Temperature 98.1 F 09/23/21 19:48 Pulse Rate 84 09/24/21 00:59 Respiratory Rate 18 09/23/21 19:48 Blood Pressure 131/78 09/24/21 00:59 Pulse Oximetry (%) 96 09/24/21 00:59 [facility] MDM Narrative Medical decision making narrative: Narrative: Patient with symptoms suspicious for septic joint. Joint was tapped showing purulent appearing fluid, studies sent to the lab. She otherwise does not have septic physiology, but presumptive antibiotics were given, chosen due to antibiotic allergies. Unfortunately the hospitalist is capped and unable to admit to the hospital at this time, so we will hold in the emergency department pending evaluation by her orthopedist this a.m. Lab Data Lab results reviewed: Yes I reviewed the patient's lab results. Result diagrams: 09/23/21 20:16 09/23/21 20:16 Labs: Lab Results 09/23/21 09/23/21 09/23/21 Range/Units 20:16 20:16 20:16 WBC 7.6 (4.5-11.0) K/mcL RBC 3.65 (3.59-5.38) M/mcL Hgb 9.9 L (11.2-15.7) g/dL Hct 31.9 L (34.1-44.9) % MCV 87.4 (80.0-100.0) fL MCH 27.1 (26.0-34.0) pg MCHC 31.0 (31.0-36.0) g/dL RDW 14.6 H (11.5-14.5) % Plt Count 506 H (140-440) K/mcL MPV 9.4 (7.4-10.4) fL Seg Neutrophils % 59 (38-78) % Lymphocytes % 30 (15-49) % Monocytes % (Manual) 9 (1-12) % Eosinophils % (Manual) 1 (0-7) % Basophils % (Manual) 1 (0-2) % Platelet Estimate Increased A (Normal) RBC Morphology Normal (Normal) VBG Lactic Acid 0.8 (0.5-2.0) mmol/L Sodium 137 (133-145) mmol/L Potassium 3.5 (3.3-5.1) mmol/L Chloride 102 (96-108) mmol/L Carbon Dioxide 23 (22-30) mmol/L Anion Gap 12.0 (8.0-16.0) BUN 12 (6-20) mg/dL Creatinine 0.7 (0.6-1.1) mg/dL GFR Calculation 99 Glucose 95 (70-105) mg/dL Calcium 9.5 (8.6-10.4) mg/dL Total Bilirubin 0.2 (0.1-1.0) mg/dL AST 10 (<32) U/L ALT 10 (<40) U/L Alkaline Phosphatase 129 H (39-117) U/L Total Protein 7.8 (5.9-8.4) gm/dL Albumin 3.2 (3.2-5.2) gm/dL Globulin 4.6 H (2.2-3.7) gm/dL Albumin/Globulin Ratio 0.7 L (1.0-2.3) ED POC Tests ED POC Tests: NAIMA - SARS Antigen Negative Procedures Joint Aspiration/Injection Joint Asp./Inject. 1: Consent Obtained: verbal consent Time Out Performed: No Side of body: left Joint Aspirated: knee Ultrasound Guidance: No Skin Prep: Chlorhexidine Local Anesthetic: lidocaine 1% Amount of anesthesia used (mL): 8 Needle Size Used: 22G Fluid Obtained: purulent Total Fluid Obtained (mls): 15 Patient Tolerated Procedure: well Complications: none Discharge Plan Patient/Caregiver Discharge Instructions Pt seen by PROJECT ADMINISTRATOR/PA only: No Clinical Impression: Septic arthritis Patient Disposition: Xfer As Inpt ([facility]) Follow up with: Anastacia Lindsay FNP [Primary Care Provider] - Prescriptions: No Action diclofenac sodium 1 % gel See Rx Instructions .ROUTE .COMPLEX Qty: 100 0RF Rx Instructions: apply to affected areas twice daily prn; pregabalin [Lyrica] 100 mg capsule 50 mg PO TID 0RF cephalexin 500 mg capsule 500 mg PO QID 0RF leflunomide 20 mg tablet 20 mg PO QDAY Qty: 30 2RF multivitamin 1 EACH tablet 1 each PO DAILY 0RF acyclovir 800 MG tablet 400 mg PO PRN PRN (Reason: Cold Sores) 0RF aripiprazole 15 MG tablet 15 mg PO DAILY 0RF pramipexole 1.5 MG tablet extended release 24 hr 1.5 mg PO BID 0RF amlodipine 5 MG tablet 10 mg PO HS 0RF levothyroxine 200 mcg Tablet 288 mcg PO QDAY 0RF Rx Instructions: In addition to Levothyroxine 150mcg atorvastatin 40 mg tablet 40 mg PO QHS 0RF Label Comments: TAKE 1 TABLET BY MOUTH AT BEDTIME famotidine 40 mg tablet 40 mg PO QDAY 0RF meloxicam 7.5 mg Tablet 7.5 mg PO BID 0RF albuterol 90 mcg/actuation Aerosol 90 mcg INHALATION PRN PRN (Reason: Shortness Of Breath) 0RF clobetasol 0.05 % ointment 0.05 ea TOPICAL PRN PRN (Reason: Rash) 0RF Label Comments: APPLY EXTERNALLY TO THE AFFECTED AREA ON BODY TWICE DAILY FOR ALMOST 2 WEEKS ON/OFF. AVOID FACE. epinephrine 0.3 mg/0.3 mL auto-injector 0.3 mg IM PRN PRN (Reason: Anaphylaxis) 0RF Label Comments: INJECT EPIPEN NEEDED FOR EXPOSURE TO BEE VENOM escitalopram oxalate 10 mg tablet 10 mg PO QDAY 0RF Label Comments: TAKE 1 TABLET BY MOUTH EVERY DAY hydrocodone-acetaminophen 10-325 mg Tablet 1 - 2 tab PO Q4HP PRN (Reason: Per Pain Protocol) Qty: 60 0RF albuterol sulfate 90 mcg/actuation HFA aerosol inhaler 2 puff inhalation Q6H PRN (Reason: shortness of breath or wheezing) Qty: 8.5 0RF
[2021-09-24 01:26] LABS: Appearance,Synovial Fluid Turbid; Color,Synovial Fluid Red; Lymphocytes,Synovial Fluid 7 %; Neutrophils,Synovial Fluid 82 % (0-25); Nucleated Cells,Synovial Fld 13570 /cumm; Other Cells,Synovial Fluid 11 %
[2021-09-24] MEDS: HYDROcodone/APAP 5/325MG TABLET PO PRN (03:34)
[2021-09-24] MEDS ORDERED: ONDANSETRON 4 MG/2 ML VIAL IV ONE ×2 (06:28→07:27)
[2021-09-24] MEDS ORDERED: HYDROmorphone 0.5 MG/0.5 ML SYRINGE IV ONE (07:27)
--- NOTE | 2021-09-24 07:44 | Orthopedic History & Physical ---
HPI History of Present Illness Patient information: Note initiated : 09/24/21 at 7:42 am Service Date, if different from initiated Date: [] Patient: Sayra Alvarado 51 y/o F admitted on for Left knee pain, N/V, fever. Chief Complaint: [Left knee pain] Chief complaint: Left knee pain History of present illness: Ms. Alvarado is a 51 year old Female with history of left total knee arthroplasty status post multiple revisions. She presented to the [facility] emergency department with complaint of left knee pain, swelling, subjective fevers, and nausea. Workup obtained in the ED Included arthrocentesis revealing 10349 nucleated cells 82% neutrophils. Review of Systems All systems: reviewed and no additional remarkable complaints except as stated PFSH PFSH All Active Problems Septic arthritis (Acute) Left leg swelling (Acute) Effusion of knee joint, left (Acute) Exposure to COVID-19 virus (Acute) Acute sinusitis (Acute) Acid reflux (Chronic) COPD (chronic obstructive pulmonary disease) (Chronic) Crohn's disease (Chronic) Depressive disorder (Chronic) Hypertension, essential (Chronic) Hypothyroidism (acquired) (Chronic) Insomnia (Chronic) Tobacco abuse (Chronic) Osteoarthritis (Chronic) Obstructive sleep apnea syndrome (Chronic) Fibromyalgia (Chronic) Tear of meniscus of right knee (Chronic) Encounter for long-term (current) use of other high-risk medications (Acute) Chondrocalcinosis (Acute) Osteoarthritis of spine (Chronic) Back pain (Chronic) Encounter for long-term (current) use of high-risk medication (Chronic) Plantar fasciitis (Chronic) Osteoarthritis of left knee (Chronic) Sciatica (Chronic) Lumbar radiculopathy (Chronic) Abdominal wall hernia (Chronic) Rheumatoid arthritis (Chronic) Anxiety (Chronic) Chest pain at rest (Acute) Shortness of breath (Acute) History of pulmonary embolus (PE) (Acute) ESR raised (Acute) CRP elevated (Acute) Back pain (Acute) Encounter for medication refill (Acute) Change of dressing (Acute) Occluded PICC line (Acute) PIC line (peripherally inserted central catheter) flush (Acute) Ankle sprain (Acute) Polyarthralgia (Chronic) Contact dermatitis (Acute) Allergic reaction (Acute) Oral candidiasis (Acute) Left acute otitis media (Acute) Post-op bleeding (Acute) Encounter for post surgical wound check (Acute) Postoperative cellulitis of surgical wound (Acute) Medical History Abdominal wall hernia Acid reflux 2011 Acute exacerbation of chronic obstructive airways disease Acute sinusitis Anxiety Back pain Chest pain Chondrocalcinosis COPD (chronic obstructive pulmonary disease) 2010 Crohn's disease 2010 CRP elevated Depressive disorder Encounter for long-term (current) use of high-risk medication Encounter for long-term (current) use of other high-risk medications Encounter for long-term current use of other high-risk medications ESR raised Exposure to COVID-19 virus Fibromyalgia Headache Headache Hypertension, essential 2012 Hypothyroidism (acquired) 07/20/2014 Insomnia 2010 Lumbar radiculopathy Migraine 1986 Obstructive sleep apnea syndrome Osteoarthritis Osteoarthritis of left knee Osteoarthritis of spine Plantar fasciitis Polyarthralgia Pre-syncope Rheumatoid arthritis Sciatica Tear of meniscus of right knee Tobacco abuse Tobacco abuse - smoking Urinary tract infection Uterine malignant neoplasm 1996 Surgical History History of back surgery x 7 History of colonoscopy 2011 History of elbow surgery Both elbows History of esophagogastroduodenoscopy 09/27/2014 History of eye surgery Both eyes History of hand surgery Wrist surgery; both wrists History of hernia surgery x 4 History of knee surgery x 3 History of neck surgery for chronic severe migraines History of thymectomy Thymus gland surgery Hx of total knee arthroplasty Family History Mother Family history of arthritis Migraine Father Essential hypertension Son Migraine Sister Carcinoma in situ of skin Social History marital status: single alcohol intake frequency: holiday/special occasion only substance use type: does not use MEDS/ALLERGIES Home Medications and Allergies Home Medications Medication Instructions Recorded Confirmed Type acyclovir 800 mg tablet 400 mg PO PRN PRN 05/07/19 08/06/21 History aripiprazole 15 mg tablet 15 mg PO DAILY 05/07/19 08/06/21 History multivitamin 1 each PO DAILY 05/07/19 08/06/21 History pramipexole 1.5 mg tablet,extended 1.5 mg PO BID 05/07/19 08/06/21 History release 24 hr amlodipine 5 mg tablet 10 mg PO HS 06/23/19 08/06/21 History pregabalin 100 mg capsule (Lyrica) 50 mg PO TID cap 03/05/21 08/06/21 History levothyroxine 200 mcg tablet 288 mcg PO QDAY 05/17/21 08/06/21 History albuterol 90 mcg/actuation aerosol 90 mcg INHALATION PRN PRN 06/17/21 08/06/21 History inhaler atorvastatin 40 mg tablet 40 mg PO QHS 06/17/21 08/06/21 History clobetasol 0.05 % topical ointment 0.05 ea TOPICAL PRN PRN 06/17/21 08/06/21 History epinephrine 0.3 mg/0.3 mL 0.3 mg IM PRN PRN 06/17/21 08/06/21 History injection, auto-injector escitalopram oxalate 10 mg tablet 10 mg PO QDAY 06/17/21 08/06/21 History famotidine 40 mg tablet 40 mg PO QDAY 06/17/21 08/06/21 History meloxicam 7.5 mg tablet 7.5 mg PO BID 06/17/21 08/06/21 History hydrocodone 10 mg-acetaminophen 1 - 2 tab PO Q4HP PRN #60 tab 06/20/21 08/06/21 Rx 325 mg tablet leflunomide 20 mg tablet 20 mg PO QDAY #30 tab 07/02/21 08/06/21 Rx diclofenac sodium 1 % topical gel See Rx Instructions .ROUTE 07/09/21 08/06/21 Rx .COMPLEX #100 g cephalexin 500 mg capsule 500 mg PO QID 08/06/21 08/06/21 History albuterol sulfate 90 mcg/actuation 2 puff INHALATION Q6H PRN #8.5 g 09/02/21 Rx aerosol inhaler Allergies Allergy/AdvReac Type Severity Reaction Status Date / Time Bee Pollen Allergy Severe Anaphylaxis Verified 09/23/21 19:50 carisoprodol Allergy Severe Difficulty Verified 09/23/21 19:50 Breathing Amoxicillin [From Augmentin] Allergy Mild Rash Verified 09/23/21 19:50 lisinopril Allergy Mild Rash Verified 09/23/21 19:50 sucralfate [From Carafate] Allergy Mild Rash Verified 09/23/21 19:50 Sulfa (Sulfonamide Allergy Mild Rash Verified 09/23/21 19:50 Antibiotics) aspirin AdvReac Mild Nose Bleed Verified 09/23/21 19:50 Iodinated Contrast Media AdvReac Mild Anxiety Verified 09/23/21 19:50 morphine AdvReac Mild Irritable Verified 09/23/21 19:50 Physical Examination Narrative Narrative: Narrative: Results Labs Result Diagrams: 09/23/21 20:16 09/23/21 20:16 Labs: Abnormal lab results 09/23/21 09/23/21 09/23/21 Range/Units 20:16 20:16 21:15 Hgb 9.9 L (11.2-15.7) g/dL Hct 31.9 L (34.1-44.9) % RDW 14.6 H (11.5-14.5) % Plt Count 506 H (140-440) K/mcL Platelet Estimate Increased A (Normal) Alkaline Phosphatase 129 H (39-117) U/L Globulin 4.6 H (2.2-3.7) gm/dL Albumin/Globulin Ratio 0.7 L (1.0-2.3) Synovial Neutrophils 82 H (0-25) % H & H 09/23/21 Range/Units 20:16 Hgb 9.9 L (11.2-15.7) g/dL Hct 31.9 L (34.1-44.9) % All other labs normal. A/P Narrative A/P Narrative: On exam patient is seated in bed in no acute distress lungs are equal and clear bilaterally heart normal rate and rhythm. Head, neck, chest, abdomen, pelvis, bilateral upper extremities and right lower extremity Are nontender to palpation and exhibit normal range of motion and strength. Pupils WILMA , extraocular motions are intact, mucous membranes are moist. At the left lower extremity there is a large joint effusion which is mildly erythematous and diffusely swollen. Arthroplasty incision is well-healed without signs of dehiscence. Range of motion is slightly limited by pain. Distal pulses are 2+. Options were presented to the patient including nonsurgical and surgical o ptions. Nonsurgical consisting of further antibiotic treatment, and watchful waiting carries a risk of overwhelming sepsis and . Surgical option consists of open irrigation debridement with liner exchange possible component exchange, possible revision total knee arthroplasty. At this time patient is interested in surgery. Plan will be for Left knee open irrigation and debridement with liner exchange, possible component exchange, possible revision total knee arthroplasty To take place semi-emergently with Dr. Dinero orthopedic surgeon. Surgical risks were explained to the patient including but not limited to: Pain, bleeding, infection, injury to adjacent structures, implant failure, need for further surgery, stroke wrist, grade complications including heart attack or SC, pulmonary complications including pneumonia or pulmonary embolism, anesthesia reactions and . Patient understands risks and wishes to proceed with surgery. Time Spent With Patient Time: Total time spent is greater than 50% in coordination of care (as documented) at patient's floor/unit and/or counseling patient:
--- NOTE | 2021-09-24 08:25 | XRay Report ---
INDICATION: left knee pain TECHNIQUE: AP, oblique, lateral right knee COMPARISON: Previous examinations dated 07/16/2021, 07/31/2021, 08/06/2021 FINDINGS: Previous left total knee arthroplasty. No periprosthetic fracture. No evidence for loosening or osteomyelitis Probable suprapatellar joint effusion. Appearance is unchanged No periarticular soft tissue abnormality IMPRESSION: 1. Previous left total knee arthroplasty 2. Findings consistent with suprapatellar joint effusion 3. No acute fracture. No interval change Interpreted and Authenticated by: Taz Delarosa 09/24/21
[2021-09-24] MEDS ORDERED: fentaNYL 100 MCG/2 ML VIAL IV ONE (12:22)
[2021-09-24] MEDS ORDERED: TRANEXAMIC ACID 1,000 MG/10 ML VIAL ONE (12:22)
[2021-09-24] MEDS ORDERED: ONDANSETRON 4 MG/2 ML VIAL ONE (12:22)
[2021-09-24] MEDS ORDERED: SUCCINYLCHOLINE 20 MG/ML ML IV ONE (12:22)
[2021-09-24] MEDS ORDERED: FAMOTIDINE/PF 20 MG/2 ML VIAL IV ONE (12:22)
[2021-09-24] MEDS ORDERED: diphenhydrAMINE 50 MG/ML VIAL ONE (12:22)
[2021-09-24] MEDS ORDERED: SUGAMMADEX SODIUM 200 MG/2 ML VIAL IV ONE (12:22)
[2021-09-24] MEDS ORDERED: METOPROLOL TARTRATE 5 MG/5 ML VIAL IV ONE (12:22)
[2021-09-24] MEDS ORDERED: GLYCOPYRROLATE 0.2 MG/ML VIAL IV ONE (12:22)
[2021-09-24] MEDS ORDERED: KETAMINE 50 MG/ML Syringe (ANEST) IV ONE (12:22)
[2021-09-24] MEDS ORDERED: DEXAMETHASONE 10 MG/ML VIAL ONE (12:22)
[2021-09-24] MEDS ORDERED: ROPIVACAINE HCL/PF 20 ML VIAL IJ ONE (12:22)
[2021-09-24] MEDS ORDERED: MAGNESIUM SULFATE 2 GM/50 ML BAG IV ONE (12:22)
[2021-09-24] MEDS ORDERED: PROPOFOL 200 MG/20 ML VIAL IV ONE (12:22)
[2021-09-24] MEDS ORDERED: ROCURONIUM 10 MG/ML ML IV ONE (12:22)
--- NOTE | 2021-09-24 12:34 | Discharge Plan ---
Discharge Instructions - TKA Patient Instructions Total Knee Protocol: For Total Knee: Start ROM MAREK with stationary bike or rocking chair. Work on gaining full extension of knee. Posterior dislocation precautions provided. Hip abductor strengthening and gait training instructions provided. Apply Cryocuff as instructed. Dressing Care: May shower in 2 days and Aquacel Ag - leave on for 5 days Discharge Plan Patient/Caregiver Discharge Instructions Activity: ambulate only with your walker and as per physical therapy Diet: Regular Diet Prescriptions: New docusate sodium 100 mg capsule 100 mg PO BID Qty: 60 0RF hydrocodone-acetaminophen 10-325 mg tablet 1 - 2 tab PO Q4H PRN (Reason: pain) Qty: 75 0RF aspirin [Ecotrin Low Strength] 81 mg tablet,delayed release (DR/EC) 81 mg PO BID Qty: 60 0RF No Action diclofenac sodium 1 % gel See Rx Instructions .ROUTE .COMPLEX Qty: 100 0RF Rx Instructions: apply to affected areas twice daily prn; pregabalin [Lyrica] 100 mg capsule 50 mg PO TID 0RF cephalexin 500 mg capsule 500 mg PO QID 0RF leflunomide 20 mg tablet 20 mg PO QDAY Qty: 30 2RF multivitamin 1 EACH tablet 1 each PO DAILY 0RF acyclovir 800 MG tablet 400 mg PO PRN PRN (Reason: Cold Sores) 0RF aripiprazole 15 MG tablet 15 mg PO DAILY 0RF pramipexole 1.5 MG tablet extended release 24 hr 1.5 mg PO BID 0RF amlodipine 5 MG tablet 10 mg PO HS 0RF levothyroxine 200 mcg Tablet 288 mcg PO QDAY 0RF Rx Instructions: In addition to Levothyroxine 150mcg atorvastatin 40 mg tablet 40 mg PO QHS 0RF Label Comments: TAKE 1 TABLET BY MOUTH AT BEDTIME famotidine 40 mg tablet 40 mg PO QDAY 0RF meloxicam 7.5 mg Tablet 7.5 mg PO BID 0RF albuterol 90 mcg/actuation Aerosol 90 mcg INHALATION PRN PRN (Reason: Shortness Of Breath) 0RF clobetasol 0.05 % ointment 0.05 ea TOPICAL PRN PRN (Reason: Rash) 0RF Label Comments: APPLY EXTERNALLY TO THE AFFECTED AREA ON BODY TWICE DAILY FOR ALMOST 2 WEEKS ON/OFF. AVOID FACE. epinephrine 0.3 mg/0.3 mL auto-injector 0.3 mg IM PRN PRN (Reason: Anaphylaxis) 0RF Label Comments: INJECT EPIPEN NEEDED FOR EXPOSURE TO BEE VENOM escitalopram oxalate 10 mg tablet 10 mg PO QDAY 0RF Label Comments: TAKE 1 TABLET BY MOUTH EVERY DAY hydrocodone-acetaminophen 10-325 mg Tablet 1 - 2 tab PO Q4HP PRN (Reason: Per Pain Protocol) Qty: 60 0RF albuterol sulfate 90 mcg/actuation HFA aerosol inhaler 2 puff inhalation Q6H PRN (Reason: shortness of breath or wheezing) Qty: 8.5 0RF Follow Up Plan Follow up with: Anastacia Lindsay FNP [Primary Care Provider] - Christian Lui PALokiC [Physician [employer]] - Patient Disposition: Home, Self-Care Prognosis: Good Rehab Potential: Good I certify that the patient requires SNF services: No Overall status at discharge: patient is progressing back to baseline Discharge Orders: Discharge Order (Routine); Ordered 09/25/21 Ordered By: Christian Lui
[2021-09-24] MEDS ORDERED: LACTATED RINGERS 250 ML IV PRN (13:28)
[2021-09-24] MEDS ORDERED: NALOXONE HCL 0.4 MG/ML VIAL IV PRN (13:28)
[2021-09-24] MEDS ORDERED: PROMETHAZINE 25 MG/ML VIAL IV PRN (13:28)
[2021-09-24] MEDS ORDERED: IPRATROPIUM/ALBUTEROL 3 ML AMPUL.NEB NEB PRN ×2 (13:28→13:47)
[2021-09-24] MEDS ORDERED: LACTATED RINGERS 1,000 ML IV SCH (13:30)
[2021-09-24] MEDS ORDERED: ACETAMINOPHEN 325 MG TABLET PO PRN (13:40)
[2021-09-24] MEDS ORDERED: MAGNESIUM HYDROXIDE 30 ML ORAL.SUSP PO PRN (13:40)
[2021-09-24] MEDS ORDERED: TEMAZEPAM 15 MG CAPSULE PO PRN (13:40)
[2021-09-24] MEDS ORDERED: ONDANSETRON 4 MG/2 ML VIAL IV PRN (13:40)
[2021-09-24] MEDS ORDERED: BENZOCAINE/MENTHOL 1 LOZENGE PO PRN (13:40)
[2021-09-24] MEDS ORDERED: TRANEXAMIC ACID 1,000 MG/10 ML VIAL IV SCH (13:40)
[2021-09-24] MEDS ORDERED: FLEETS ADULT ENEMA PR PRN (13:40)
[2021-09-24] MEDS ORDERED: POLYETHYLENE GLYCOL 3350 17 GM PACKET PO PRN (13:40)
[2021-09-24] MEDS ORDERED: BISACODYL 10 MG SUPP.RECT PR PRN (13:40)
--- NOTE | 2021-09-24 13:40 | Brief Operative Note ---
Brief Operative Note Date of procedure: 09/24/21 Pre-op diagnosis: left knee septic tka Post-op diagnosis: same Procedure: Left tka revision first stage Grafts/Implants: Yes Anesthesia: GETA Findings: septic tka Surgeon: Andreas Dinero Performance Improvement Coordinator: Christian Lui Estimated blood loss (cc): 45 Tourniquet Time (Minutes): 27 Specimens Removed/Pathology: none sent Condition: stable Disposition: PACU
--- NOTE | 2021-09-24 13:41 | EKG ---
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
[2021-09-24] MEDS ORDERED: ceFAZolin 1 GM VIAL IV SCH (13:45)
[2021-09-24] MEDS ORDERED: ALBUTEROL SULFATE 200 PUFF INHALER INH PRN (13:45)
[2021-09-24] MEDS ORDERED: CLOBETASOL PROP OINT 0.05% TUBE 15GM TOPICAL PRN (13:45)
[2021-09-24] MEDS: fentaNYL 100 MCG/2 ML VIAL IV PRN ×8 (13:46→14:25)
[2021-09-24] MEDS ORDERED: MEPERIDINE 25 MG/ML VIAL IV PRN (13:47)
[2021-09-24] MEDS ORDERED: MEPERIDINE 50 MG/ML VIAL IM PRN (13:47)
[2021-09-24] MEDS ORDERED: LORazepam 2 MG/ML VIAL IV ONE ×2 (13:49→14:50)
[2021-09-24] MEDS ORDERED: LORazepam 2 MG/ML VIAL ONE (14:01)
[2021-09-24] MEDS ORDERED: ACYCLOVIR 400 MG TABLET PO PRN (14:20)
[2021-09-24] MEDS ORDERED: VANCOMYCIN PER PHARMACY IV SCH (14:30)
--- NOTE | 2021-09-24 14:34 | Operative Note ---
DATE OF OPERATION: 09/24/2021 PREOPERATIVE DIAGNOSIS: Septic left knee. POSTOPERATIVE DIAGNOSIS: Septic left knee. PROCEDURE: Left total knee revision, first stage. SURGEON: Andreas Dinero M.D. ACTIVITIES ATTENDANT: Christian Lui PA-C. This providers expertise and technical skill were required throughout the case. The LUIS assisted with preoperative coordination, intraoperative retraction, wound closure, and dressing and splint application, as well as postoperative documentation and care coordination. ANESTHESIA: General LMA anesthesia. COMPLICATIONS: None. ESTIMATED BLOOD LOSS: About 27 minutes. IMPLANT REMOVAL: Removal of poly liner with thorough irrigation and synovectomy. DESCRIPTION OF PROCEDURE: The patient was brought to the operating room, put to sleep with general LMA anesthesia. Left leg was sterilely prepped and draped in the usual sterile fashion. The leg was exsanguinated and inflated the tourniquet to 250 pounds of pressure and then we made a midline incision through her prior scar. We exposed the joint showing the anterior capsule and then released anteromedially with a midvastus approach. Approximately 450 mL of purulent material and debris was removed from the knee. We performed a complete synovectomy, removed the poly liner. Though the implants were stable, the poly liner was removed and we thoroughly irrigated the back of the knee using IrriSept as well as pulse lavage, 6 liters of irrigation. After completing the synovectomy completely, we then replaced the new poly liner and closed the midvastus approach with #1 Stratafix. We deflated the tourniquet at 27 minutes. There were no complications. Skin was closed with Stratafix and sigifredo. A sterile bandage was applied. The patient tolerated this well without complication. [facility]:nithin Job ID: [id number] Doc ID: [id number] Andreas Dinero MD
--- NOTE | 2021-09-24 14:59 | XRay Report ---
INDICATION: Post-Op Total Knee TECHNIQUE: AP and lateral COMPARISON: Previous examination dated 09/24/2021 FINDINGS:Status post revision of left total knee arthroplasty. Prosthetic components are in anatomic positions. There is postsurgical intra-articular and soft tissue gas. There is prepatellar soft tissue swelling IMPRESSION: Left total knee arthroplasty Interpreted and Authenticated by: Taz Delarosa 09/24/21
[2021-09-24] MEDS: 0.45 % SODIUM CHLORIDE 1,000 ML IV SCH (15:18)
[2021-09-24] MEDS: 0.9 % SODIUM CHLORIDE 10 ML SYRINGE IV SCH ×2 (15:24→20:26)
[2021-09-24] MEDS: HYDROmorphone 1 MG/ML SYRINGE IV PRN ×3 (16:36→20:55)
[2021-09-24] MEDS: HYDROcodone/APAP 10/325MG TABLET PO PRN ×2 (17:24→23:18)
[2021-09-24] MEDS: ASPIRIN 81 MG TAB.CHEW PO SCH (20:54)
[2021-09-24] MEDS: DOCUSATE SODIUM 100 MG CAPSULE PO SCH (20:55)
[2021-09-24] MEDS ORDERED: ATORVASTATIN 40 MG TABLET PO SCH (21:00)
[2021-09-24] MEDS ORDERED: amLODIPine 5 MG TABLET PO SCH (21:00)
[2021-09-24] MEDS ORDERED: SENNOSIDES 1 TABLET PO SCH (21:00)
[2021-09-24] MEDS: VANCOMYCIN 2,000 MG in 0.9 % SODIUM CHLORIDE 500 ML IV SCH (21:09)
[2021-09-24] MEDS ORDERED: diphenhydrAMINE 25 MG CAPSULE PO PRN (21:39)
[2021-09-24] MEDS ORDERED: diphenhydrAMINE 25 MG CAPSULE ONE (21:56)
[2021-09-25] MEDS: HYDROmorphone 1 MG/ML SYRINGE IV PRN ×2 (03:27→07:24)
[2021-09-25] MEDS: 0.45 % SODIUM CHLORIDE 1,000 ML IV SCH (03:54)
[2021-09-25] MEDS: HYDROcodone/APAP 10/325MG TABLET PO PRN ×3 (05:46→14:01)
[2021-09-25] MEDS: 0.9 % SODIUM CHLORIDE 10 ML SYRINGE IV SCH ×2 (05:47→16:27)
--- NOTE | 2021-09-25 06:53 | Orthopedic Progress Note ---
SUBJECTIVE Subjective Patient information: Note initiated : 09/25/21 at 6:52 am Service Date, if different from initiated Date: [] Patient: Sayra Alvarado 51 y/o F admitted on 09/24/21 for Left knee pain, N/V, fever. Chief Complaint: [Pt is stable this morning on post operative day without any significant concerns or complaints. Patients vital signs have remained stable. Patients dressing is dry and is grossly intact from a neurovascular and motor standpoint. Patients 10 point ROS is otherwise negative. ] Constitutional Vitals: Vital Signs Temp Pulse Resp BP Pulse Ox 96.9 F L 80 16 134/80 95 09/25/21 03:32 09/25/21 03:32 09/25/21 03:32 09/25/21 03:32 09/25/21 05:00 Period Temp Pulse Resp BP Sys/Aquino Pulse Ox Last 24 Hr 96.9 F-99.3 F 65-107 13-23 99-157/67-107 90-100 Intake and Output 09/24/21 09/25/21 09/25/21 21:59 05:59 13:59 Intake Total 460 1494 Output Total 425 Balance 460 1069 Weight 201 lb Intake & Output: Intake & Output 09/24/21 09/25/21 09/25/21 21:59 05:59 13:59 Intake Total 460 1494 Output Total 425 Balance 460 1069 Weight 201 lb Intake: IV 994 Sodium Chloride 0.45% 1,000 ml 683 @ 100 mls/hr IV .Q10H ANJU Rx#: [id number] Vancomycin 2,000 mg In Sodium 311 Chloride 0.9% 500 ml @ 333.3 mls/hr IV Q24H ANJU Rx#: [id number] Oral 260 500 IV - Manual Only 200 Output: Void Amount 425 Other: Meal PBJ sandwich Percent of Meal Consumed 100% Feeding Ability Independent Urine Appearance Clear Urine Color Dark Yellow Urine Odor Normal Extremities Exam Extremities exam: Present normal capillary refill, normal inspection, Foot pink and warm and neurovascular intact OBJ DATA Labs CBC & Chem 7: 09/25/21 05:10 09/23/21 20:16 Labs: Abnormal Lab Results 09/25/21 09/23/21 09/23/21 05:10 21:15 20:16 Hgb Hct 30.6 L RDW Plt Count Platelet Estimate Alkaline Phosphatase 129 H Globulin 4.6 H Albumin/Globulin Ratio 0.7 L Synovial Neutrophils 82 H 09/23/21 20:16 Hgb 9.9 L Hct 31.9 L RDW 14.6 H Plt Count 506 H Platelet Estimate Increased A Alkaline Phosphatase Globulin Albumin/Globulin Ratio Synovial Neutrophils Meds: Medications Acetaminophen (Acetaminophen 325 Mg Tablet) 650 mg PO Q6HP PRN; Protocol PRN Reason: Per Pain Protocol/Fever > 101 Hydrocodone Bitart/Acetaminophen (Hydrocodone/Apap 10/325mg Tablet) 1 - 2 tab PO Q4HP PRN; Protocol PRN Reason: Per Pain Protocol Last Admin: 09/25/21 05:46 Dose: 2 tab Documented by: Acyclovir (Acyclovir 400 Mg Tablet) 400 mg PO DAILYP PRN PRN Reason: Cold Sores Albuterol Sulfate (Albuterol Sulfate 200 Puff Inhaler) 2 puff INH Q6HP PRN PRN Reason: shortness of breath or wheezin Last Admin: 09/24/21 21:40 Dose: 2 puff Documented by: Amlodipine Besylate (Amlodipine 5 Mg Tablet) 10 mg PO HS [facility] Last Admin: 09/24/21 20:55 Dose: 10 mg Documented by: Aspirin (Aspirin 81 Mg Tab.Chew) 81 mg PO BID [facility] Last Admin: 09/24/21 20:54 Dose: 81 mg Documented by: Atorvastatin Calcium (Atorvastatin 40 Mg Tablet) 40 mg PO QHS [facility] Last Admin: 09/24/21 20:55 Dose: 40 mg Documented by: Bisacodyl (Bisacodyl 10 Mg Supp.Rect) 10 mg TN Q2-3DAYS PRN PRN Reason: Constipation Clobetasol Propionate (Clobetasol Prop Oint 0.05% Tube 15gm) 1 dose TOPICAL DAILYP PRN PRN Reason: Rash Diphenhydramine HCl (Diphenhydramine 25 Mg Capsule) 25 mg PO Q6HP PRN PRN Reason: Allergic Symptoms Last Admin: 09/24/21 22:06 Dose: 25 mg Documented by: Docusate Sodium (Docusate Sodium 100 Mg Capsule) 100 mg PO BID [facility] Last Admin: 09/24/21 20:55 Dose: 100 mg Documented by: Famotidine (Famotidine 20 Mg Tablet) 40 mg PO QDAY [facility] Hydromorphone HCl (Hydromorphone 1 Mg/Ml Syringe) 0.5 - 2 mg IV Q2HP PRN; Protocol PRN Reason: Per Pain Protocol Last Admin: 09/25/21 03:27 Dose: 1 mg Documented by: Vancomycin HCl 2,000 mg/ (Sodium Chloride) 500 mls @ 333.3 mls/hr IV Q24H [facility]; Protocol Last Infusion: 09/24/21 22:38 Dose: 333.3 mls/hr Documented by: Levothyroxine Sodium (Levothyroxine 150 Mcg Tablet) 300 mcg PO QAMAC ANJU Levothyroxine Sodium (Levothyroxine 50 Mcg Tablet) 50 mcg PO QAMAC ANJU Magnesium Hydroxide (Magnesium Hydroxide 30 Ml Oral.Susp) 30 ml PO BIDP PRN PRN Reason: Constipation Ondansetron HCl (Ondansetron 4 Mg/2 Ml Vial) 4 mg IV Q4HP PRN PRN Reason: Nausea And Vomiting Polyethylene Glycol (Polyethylene Glycol 3350 17 Gm Packet) 17 gm PO DAILYP PRN PRN Reason: Constipation Senna (Sennosides 1 Tablet) 2 tab PO HS [facility] Last Admin: 09/24/21 20:55 Dose: 2 tab Documented by: Sodium Biphosphate/Sodium Phosphate (Fleets Adult Enema) 1 dose TN Q3-4DAYS PRN PRN Reason: Constipation Sodium Chloride (0.9 % Sodium Chloride 10 Ml Syringe) 10 ml IV Q8 [facility] Last Admin: 09/25/21 05:47 Dose: 10 ml Documented by: Temazepam (Temazepam 15 Mg Capsule) 15 mg PO HSP PRN PRN Reason: Insomnia Last Admin: 09/25/21 02:28 Dose: 15 mg Documented by: Throat Lozenges (Benzocaine/Menthol 1 Lozenge) 1 lozenge PO PRN PRN PRN Reason: Sore Throat Vancomycin HCl (Vancomycin Per Pharmacy) 1 order IV UD ANJU A/P Narrative A/P Narrative: The patient has been educated regarding dressing care, , restrictions, and follow up appointments. The patient has had all necessary DME prescribed. The patient has remained relatively stable during their hospital course. Time Spent With Patient Time: Total time spent is greater than 50% in coordination of care (as documented) at patient's floor/unit and/or counseling patient: Total time spent with greater than 50% in coordination of care (as documented) at patient's floor/unit and/or counseling patient:: less than 15 minutes
[2021-09-25] MEDS: ASPIRIN 81 MG TAB.CHEW PO SCH (07:25)
[2021-09-25] MEDS: DOCUSATE SODIUM 100 MG CAPSULE PO SCH (07:25)
[2021-09-25] MEDS ORDERED: LEVOTHYROXINE 50 MCG TABLET PO SCH (07:30)
[2021-09-25] MEDS ORDERED: LEVOTHYROXINE 150 MCG TABLET PO SCH (07:30)
[2021-09-25] MEDS ORDERED: VANCOMYCIN 2,000 MG in 0.9 % SODIUM CHLORIDE 500 ML IV SCH (08:00)
[2021-09-25] MEDS ORDERED: 0.9 % SODIUM CHLORIDE 10 ML SYRINGE IV PRN (08:07)
[2021-09-25] MEDS ORDERED: FAMOTIDINE 20 MG TABLET PO SCH (09:00)
[2021-09-25] MEDS ORDERED: ARIPIPRAZOLE 5 MG TABLET PO SCH (09:00)
[2021-09-25] MEDS ORDERED: 0.9 % SODIUM CHLORIDE 10 ML SYRINGE IV SCH (09:00)
--- NOTE | 2021-09-25 14:59 | XRay Report ---
INDICATION: PICC PLACEMENT TECHNIQUE: AP portable semiupright chest x-ray COMPARISON: Previous chest x-ray dated 09/02/2021 FINDINGS: Interval placement of right-sided PICC line. Tip of the PICC line is at the atrial caval junction in good location. Previous median sternotomy. No focal pulmonary parenchymal infiltrate or mass. No evidence for congestive heart failure IMPRESSION: Right-sided PICC line with its tip at the atriocaval junction Interpreted and Authenticated by: Taz Delarosa 09/25/21
[2021-09-25] MEDS: VANCOMYCIN 2,000 MG in 0.9 % SODIUM CHLORIDE 500 ML IV SCH (16:27)
--- NOTE | 2021-10-01 15:27 | Consultation ---
DATE OF CONSULTATION: 09/24/2021 Thank you for this consultation. As you know, this is a pleasant lady who was seen in the emergency room where she was diagnosed with a possible septic knee. For that reason, I am consulted. The left knee does show a high white count. She has erythema and redness which are indications for a possible septic knee. This 51-year-old female has a history of a prior total knee arthroplasty with revisions on the right knee. She presented 2 days ago and started having swelling and pain, difficulty bearing weight. She denies any history of trauma, but she has fallen. She has multiple antibiotic allergies. MEDICATIONS: Her medications are quite extensive and include: 1. Acyclovir 800 mg tablets. 2. Alprazolam 15 mg p.o. q. day. 3. Multivitamins. 4. Pramipexole 1.5 mg tablet extended release. 5. Amlodipine 5 mg tablet two every bedtime. 6. Lyrica 100 mg tablets, which was 1/2 tablet t.i.d. 7. Levothyroxine 200 mcg tablet, one a day. 8. Albuterol 90 mcg metered-dose inhaler. 9. Atorvastatin 40 mg p.o. at bedtime. 10. Epinephrine for allergies. 11. Famotidine 40 mg p.o. q. day for ulcers. 12. Meloxicam 7.5 mg b.i.d. 13. Cephalexin 500 mg tablets q.i.d., unsure why she is on the cephalexin. 14. Hydrocodone 10 mg tablets. ALLERGIES: 1. BEE POLLEN. 2. AMOXICILLIN. 3. LISINOPRIL. 4. SUCRALFATE. 5. BACTRIM. 6. ASPIRIN. 7. MORPHINE. SOCIAL HISTORY: She lives alone. PAST MEDICAL HISTORY: She has had septic arthritis, left leg swelling, effusions of the knee on the left side more acutely. COPD, acid reflux, depression disorder, hypertension, hypothyroidism, insomnia, tobacco abuse, fibromyalgia, osteoarthritis, back pain, sciatica, lumbar radiculopathy, anxiety, chest pain, and many more. She has also had an abdominal hernia, Crohn's disease, and CRP elevated. PAST SURGICAL HISTORY: She has had colonoscopy, back surgery, upper EGD, eye surgery, hand surgery, history of knee surgery, but she has had both total knees, history of thyroidectomy, and a history of a total knee arthroplasty. FAMILY HISTORY: Multiple health problems. PHYSICAL EXAMINATION: VITAL SIGNS: Temperature 98.1, pulse rate 102, respiratory rate is 18, blood pressure 130/76, pulse ox 97%. GENERAL: Very pleasant female, alert, cooperative, in no acute distress. She seems to be uncomfortable. HEAD: Atraumatic, normocephalic. EYES: Extraocular movements intact. ENT: No breathing difficulties. NECK: Supple, nontender. LUNGS: Clear with expiratory wheezes. Respiratory rate is nonlabored. CARDIOVASCULAR: Regular rate. No murmurs. BACK: Nontender. EXTREMITIES: Demonstrates a left knee that has a well-healed midline scar with quite a bit of swelling, grossly edema, not a lot of erythema but tender. NEUROLOGIC: She is alert and oriented x3. PSYCHIATRIC: Normal mood. SKIN: Clean and dry. LABORATORY DATA: Hematocrit of 31.9, platelet count of 506, white cell count is 9.9. Her BMP is within normal limits. Her sodium 137, potassium 3.5, chloride is 102, CO2 is 23, BUN is 12, creatinine 0.7, glucose 95. White count is actually 7.6 within normal limits without a significant shift. Alk phosphatase is elevated at 129, albumin 3.2, which is poor nutritional status. IMAGING: Her x-rays show a well-positioned total knee arthroplasty. No fracture, no loosening. IMPRESSION: Infected left knee without acute signs at present, but there is a high white count from the fluid. PLAN: The plan after discussing with the patient is to watch the cultures. We will wash the knee out immediately and exchange implants or just the poly liner, depending on what we find as her white count is fairly normal without acute signs of a chronic problem. She agrees with this plan and agrees to proceed with the above-mentioned surgery for left knee revision for infection, but unsure of the type of infection. [facility]:dread Job ID: [id number] Doc ID: [id number] Andreas Dinero MD
== END 2021-09-25 19:09 | disposition home or self-care (01) | DRG 487 ==
LOC: ED 19:46 → SUR 09-24 11:44 → MEDSUR 09-24 15:09
PROVIDERS: ADMIT Orthopaedic Surgery; ATTEND Orthopaedic Surgery